=== PATIENT | male | born 1975 | race Caucasian/White ===

== ENCOUNTER 2022-12-19 14:09 | Inpatient (IN) | payer MEDICAID, SELFPAY ==
[2022-12-19 14:10] VITALS: BP 178/115; PULSE 84; TEMP 36.6; O2SAT 97; BMI 29.7
--- NOTE | 2022-12-19 14:16 | ED.C_ITS ---
HPI - Psych General: Chief Complaint: Psychiatric Symptoms Stated Complaint: 96 hour hold Time Seen by Provider: 12/19/22 14:10 Source: patient Mode of arrival: other ([facility] department) Limitations: no limitations History of Present Illness: Patient transported to the emergency department by [facility] with a court ordered 96-hour hold. She has deputies report that the patient's been cooperative and interactive during their transportation. Patient is unaware of why he is here. He states he lives alone and has not had any negative interactions with anyone. He denies any thoughts of harming himself or others. He denies auditory or visual his hallucinations. He states he occasionally smokes marijuana but does not drink alcohol use other street drugs. He has not had any recent hospitalizations for mental health and has not had a mental health related hospitalization for over 10 years. He states he used to be prescribed medication for depression by his family doctor but has not taken those for 4 months since his family doctor moved to a different location. Synopsis of the affidavit provided from Jasvir Webster who is a [place] [employer] sergeant and apparently also the patient's nephew read of the [place] [employer] states that there they are concerned because he is been exhibiting psychosis and displays paranoia with him apparently experiencing auditory hallucinations much of his behaviors resulted in numerous calls to his residence because of his behavior and they are concerned that he is a threat to himself. Associated symptoms: Reports depression; Deny auditory hallucinations, visual hallucinations, homicidal ideation or suicidal ideation Review of Systems Const: Denies: fever(s) or chills Eyes: Denies: change in vision ENMT: Denies: throat pain or nasal congestion Card: Denies: chest pain, palpitations or dyspnea on exertion Resp: Denies: dyspnea, productive cough or non-productive cough GI: Denies: abdominal pain, nausea, vomiting or diarrhea : Denies: difficulty urinating, dysuria or urinary frequency Musc: Denies: neck pain, back pain, extremity pain or extremity swelling Skin/Breast: Denies: rash Neuro: Denies: headache(s), numbness in extremities or weakness in extremities Psych: Reports: depression; Denies: visual hallucinations, auditory hallucinations, suicidal ideation or homicidal ideation Endo: Denies: polyuria or polydipsia PFSH ED PFSH: Social History Smoking and tobacco status: current every day smoker cigarettes Packs smoked per day: 0.5 Years cigarettes smoked: 15 Quit status (tobacco): considering quitting Second hand smoke exposure: No Physical Exam Narrative: EXAM NARRATIVE: Patient is calm cooperative makes good eye contact. Answers questions in a fluent goal-directed fashion. Const: COMMON NORMALS: no acute distress, average body habitus and alert GENERAL APPEARANCE: cooperative, comfortable and well kempt HENMT: COMMON NORMALS: normocephalic, Normal nasal mucous membranes and turbinates present, moist oral mucous membranes and oropharynx normal HEAD & SCALP: normocephalic FACE & SINUS: normal facial exam NOSE: Normal nasal mucous membranes and turbinates present Eye: COMMON NORMALS: Equal, round and reactive pupils present, EOMs intact bilaterally and conjunctivae normal CONJUNCTIVA: Yes conjunctivae normal PUPIL: Yes Equal, round and reactive pupils present Neck/C-Spine: COMMON NORMALS: full ROM and no lymphadenopathy Chest: COMMONS NORMALS: normal inspection of the chest Resp: COMMON NORMALS: normal respiratory effort, No retractions and clear to auscultation bilaterally EFFORT & INSPECTION: Yes able to speak in complete sentences AUSCULTATION: clear to auscultation bilaterally Cardio: COMMON NORMALS: regular rate, regular rhythm and Peripheral pulses 2+ throughout RATE: regular rate RHYTHM: regular rhythm PERIPHERAL PULSES: Peripheral pulses 2+ throughout GI: COMMON NORMALS: Normal to inspection, nondistended, normoactive bowel sounds present : COMMON NORMALS: Yes no CVA tenderness BLADDER/KIDNEY EXAM: Yes no CVA tenderness Back/Pelvis: COMMON NORMALS: no CVA tenderness, thoracic and lumbar spine normal to inspection and thoraco-lumbar ROM normal Extremity: COMMON NORMALS: normal to inspection, full ROM, no calf tenderness and no pedal edema Neuro: COMMON NORMALS: moves all extremities, no focal motor deficits and no sensory deficits noted SENSORIUM/ORIENTATION: Yes alert CRANIAL NERVES: Yes CN normal except as noted Psych: COMMON NORMALS: mental status grossly normal, Normal thought process present, normal affect, speech normal, activity/motor behavior normal, denies hallucinations, denies homicidal ideation and denies suicidal ideation APPEARANCE: Yes well kempt ATTITUDE: Yes calm SPEECH: Yes normal speech THOUGHT PROCESS: Normal thought process present THOUGHT CONTENT: Yes Normal thought content present Skin: COMMON NORMALS: no rashes or lesions noted, no wounds and turgor normal GENERAL SKIN EXAM: no rashes or lesions noted and turgor normal Course Consultations: Consultation #1: Discussed with Dr. Yin attending psychiatrist and he agreed to take the patient to the inpatient psychiatric unit for 96-hour evaluation Time: 15:00 Vital Signs: Vital signs: Vital Signs Temperature 97.8 F 12/19/22 14:10 Pulse Rate 82 12/19/22 15:08 Respiratory Rate 16 12/19/22 15:08 Blood Pressure 149/103 12/19/22 15:08 Pulse Oximetry 99 12/19/22 15:08 MDM - Psych Medical Decision Making Patient was transported to our [facility] emergency department by local [facility]'s department with an affidavit and a court ordered 96-hour hold. Apparently the affidavit contained information that there was concerned about patient's behavior to include auditory and visual hallucinations and concern about self harm. Patient apparently had a history of alcohol abuse in the past and was previously treated for depression but is currently not taking any medications. Patient's evaluation in the emergency department found him to be very cooperative made good eye contact speech was goal-directed and fluent and he specifically denied hallucinations of any kind. He denied any thoughts of self- harm or harm to others. He denied any recent mental health evaluations or h ospitalizations. Did admit to previous treatment for depression. He denied any drug or alcohol use currently. No other concerning clinical findings noted. Screening laboratories were unremarkable at the time of this dictation. Consult Tatian with the attending psychiatrist was completed who agreed to patient admission. Lab Data I reviewed the patient's lab results. 12/19/22 14:30 12/19/22 14:30 Laboratory Results WBC 6.14 10^3/uL (3.29-11.43) 12/19/22 14:30 RBC 4.83 10^6/uL (3.85-5.65) 12/19/22 14:30 Hgb 15.70 g/dL (11.27-16.99) 12/19/22 14:30 Hct 45.8 % (37-53) 12/19/22 14:30 MCV 94.8 fl (82-101) 12/19/22 14:30 MCH 32.5 pg (27-33) 12/19/22 14:30 MCHC 34.3 g/dL (30-55) 12/19/22 14:30 RDW 13.4 % (12.1-15.1) 12/19/22 14:30 Plt Count 211 10^3/cmm (157-399) 12/19/22 14:30 MPV 10.4 fL (7.4-10.4) 12/19/22 14:30 Neut % (Auto) 39.8 % 12/19/22 14:30 Lymph % (Auto) 44.6 % 12/19/22 14:30 [place] % (Auto) 11.2 % 12/19/22 14:30 Eos % (Auto) 2.8 % 12/19/22 14:30 Baso % (Auto) 1.1 % 12/19/22 14:30 Neut # (Auto) 2.44 10^3/uL (1.8-7.7) 12/19/22 14:30 Lymph # (Auto) 2.7 10^3/uL (0.8-4.8) 12/19/22 14:30 [place] # (Auto) 0.7 10^3/uL (0.2-0.9) 12/19/22 14:30 Eos # (Auto) 0.2 10^3/uL (0.0-0.8) 12/19/22 14:30 Baso # (Auto) 0.1 10^3/uL (0.0-0.1) 12/19/22 14:30 Nucleated RBC % (auto) 0 % 12/19/22 14:30 Nucleated RBCs # 0.0 /100WBC 12/19/22 14:30 Sodium 142 mmol/L (136-145) 12/19/22 14:30 Potassium 4.1 mmol/L (3.5-5.1) 12/19/22 14:30 Chloride 109 mmol/L (98-107) H 12/19/22 14:30 Carbon Dioxide 23 mmol/L (22-29) 12/19/22 14:30 Anion Gap 14.1 (5-19) 12/19/22 14:30 BUN 13 mg/dL (6-20) 12/19/22 14:30 Creatinine 0.9 mg/dL (0.7-1.2) 12/19/22 14:30 GFR Calculation 91.3 mL/min (90-130) 12/19/22 14:30 Glucose 88 mg/dL (65-115) 12/19/22 14:30 Calculated Osmolality 294 mOsm/kg (285-295) 12/19/22 14:30 Calcium 8.9 mg/dL (8.5-10.5) 12/19/22 14:30 Total Bilirubin 0.2 mg/dL (0.15-1.2) 12/19/22 14:30 AST 28 U/L (0-40) 12/19/22 14:30 ALT 39 U/L (0-41) 12/19/22 14:30 Alkaline Phosphatase 75 U/L (40-130) 12/19/22 14:30 Total Protein 6.7 g/dL (6.6-8.7) 12/19/22 14:30 Albumin 4.3 g/dL (3.5-5.2) 12/19/22 14:30 Globulin 2.4 g/dL (1.3-4.6) 12/19/22 14:30 Salicylates < 0.3 mg/dL (3-10) L 12/19/22 14:30 Acetaminophen < 5.0 ug/mL (10-30) L 12/19/22 14:30 Ethyl Alcohol < 10 mg/dL (0-10) 12/19/22 14:30 Discharge Plan Discharge Admit Provider: Maycol Yin Clinical Impression: Encounter for medical clearance for patient hold, Mental health disorder Condition: Stable Coding Level of Care Code ED Prosthetic Dentist for Renaldo Ulloa
[2022-12-19 14:39] LABS: Basophils # 0.1 10^3/uL (0.0-0.1); Basophils % 1.1 %; Eosinophils # 0.2 10^3/uL (0.0-0.8); Eosinophils % 2.8 %; Hematocrit 45.8 % (37-53); Lymphocytes # 2.7 10^3/uL (0.8-4.8); Lymphocytes % 44.6 %; Mean Corpuscular HGB Conc 34.3 g/dL (30-55); Mean Corpuscular Hemoglobin 32.5 pg (27-33); Mean Corpuscular Volume 94.8 fl (82-101); Mean Platelet Volume 10.4 fL (7.4-10.4); Monocytes # 0.7 10^3/uL (0.2-0.9); Monocytes % 11.2 %; Neutrophils # 2.44 10^3/uL (1.8-7.7); Neutrophils % 39.8 %; Nucleated Red Blood Cells % 0 %; Platelet Count 211 10^3/cmm (157-399); Red Blood Count 4.83 10^6/uL (3.85-5.65); Red Cell Distribution Width 13.4 % (12.1-15.1); White Blood Count 6.14 10^3/uL (3.29-11.43)
[2022-12-19 14:58] LABS: Alanine Aminotransferase 39 U/L (0-41); Albumin Level 4.3 g/dL (3.5-5.2); Alkaline Phosphatase 75 U/L (40-130); Anion Gap 14.1 (5-19); Aspartate Amino Transferase 28 U/L (0-40); Blood Urea Nitrogen 13 mg/dL (6-20); Calcium 8.9 mg/dL (8.5-10.5); Carbon Dioxide 23 mmol/L (22-29); Chloride 109 mmol/L (98-107); Globulin 2.4 g/dL (1.3-4.6); Glomerular Filtration Rate 91.3 mL/min (90-130); Glucose 88 mg/dL (65-115); Osmolality Calculated 294 mOsm/kg (285-295); Potassium 4.1 mmol/L (3.5-5.1); Sodium 142 mmol/L (136-145); Total Bilirubin 0.2 mg/dL (0.15-1.2); Total Protein 6.7 g/dL (6.6-8.7)
[2022-12-19 15:00] VITALS: BP 153/101; PULSE 76; RESP 16; TEMP 37.2; O2SAT 95
[2022-12-19 15:00] LABS: Acetaminophen < 5.0 ug/mL (10-30); Alcohol Level < 10 mg/dL (0-10); Salicylate < 0.3 mg/dL (3-10)
[2022-12-19 15:08] VITALS: BP 149/103; PULSE 82; RESP 16; O2SAT 99
--- NOTE | 2022-12-19 15:32 | PC.PHAR ---
pt states he hasnt taken any meds for 3-4 months-pt states does not take rx or otc meds- wrote for xanax 0.5mg tid and Lexapro 10mg daily on 08/16/22-
--- NOTE | 2022-12-19 16:20 | PC.NURSE ---
96 hr pt rights reviewed with patient and in presence of [facility] information systems security manager Raheem @[phone]. All questions answered. Patient only request was for a glass of water which was provided to him. Patient copy of 96 hr rights left at bedside with patient.
[2022-12-19 16:27] LABS: SARS Covid-2 Antigen Negative (Negative)
[2022-12-19 21:43] VITALS: BP 144/89; PULSE 90; RESP 18; TEMP 37; O2SAT 95
[2022-12-20 06:00] VITALS: BP 124/87; PULSE 74; RESP 17; O2SAT 98
--- NOTE | 2022-12-20 12:00 | P.NPUHP_ITS ---
Providers/Chief Complaint Admitting Physician: Maycol Yin MD Primary Care Provider: Emile Estevez DO Chief Complaint: 96 hour hold HPI NPU History of Present Illness Jose Hernandez is a 47 year old male who presented to the emergency department with the following report: Chief Complaint: Psychiatric Symptoms Stated Complaint: 96 hour hold Time Seen by Provider: 12/19/22 14:10 Source: patient Mode of arrival: other ([facility]) Limitations: no limitations History of Present Illness: Patient transported to the emergency department by [facility] with a court ordered 96-hour hold. She has deputies report that the patient's been cooperative and interactive during their transportation. Patient is unaware of why he is here. He states he lives alone and has not had any negative interactions with anyone. He denies any thoughts of harming himself or others. He denies auditory or visual his hallucinations. He states he occasionally smokes marijuana but does not drink alcohol use other street drugs. He has not had any recent hospitalizations for mental health and has not had a mental health related hospitalization for over 10 years. He states he used to be prescribed medication for depression by his family doctor but has not taken those for 4 months since his family doctor moved to a different location. Synopsis of the affidavit provided from Jasvir Webster who is a [place] [employer] sergeant and apparently also the patient's nephew read of the [place] [employer] states that there they are concerned because he is been exhibiting psychosis and displays paranoia with him apparently experiencing auditory hallucinations much of his behaviors resulted in numerous calls to his residence because of his behavior and they are concerned that he is a threat to himself. Associated symptoms: Reports depression; Deny auditory hallucinations, visual hallucinations, homicidal ideation or suicidal ideation The patient was admitted to the neuropsychiatric unit for definitive treatment of those issues. The patient presents today reporting that he was prescribed escitalopram and Xanax, by Dr. Estevez, at [facility] [address] but he has moved. Xanax ? gram, 1 to 3 a day. He not taken anything for several months. The patient reports that he has no idea why he is here, a deputy showed up at his house and brought him here. We discussed that it is odd that he has not tried to gain an understanding of why he was brought here, and why they thought he needed to put on a hold. The patient reports that he had a previous psychiatric hospitalization, he was here ten years ago. He reports that he has no idea why he was hospitalized, although he did not articulate for what other than to get on medication and get disability. Then he said it was for anxiety and depression, which we discussed had to be at a certain level to require hospitalization. He reports that he has been trying to get a job and has not been able to find one and is not doing well financially. He reports that he fought for disability a couple of years ago, reporting that behavioral health said he was disabled, but he did not get disability. He reports that he has been to [facility]. He reports that he has been on [address], Effexor, Wellbutrin, Abilify, Klonopin and Ativan, which he reports did not seem to help his anxiety level. He denies Depakote. The patient reports that he smokes about a half pack of ciga rettes a day. He reports occasional alcohol use, once a week to once every two weeks. He denies regular marijuana use. He denies any other illicit drug use. He denies current cocaine, methamphetamine, opiate use. He reports that he has been to drug rehabilitation a couple times and had three DWI?s, the last time about seven years ago. He denies any other drug related charges. He reports that anxie ty and depression started when he was younger and when he was about 20 to 22 years old, he went to the doctor for that. He endorses depressive feelings related to his weight, he endorses difficulty sleeping at times, at times lack of enjoyment. He denies passive wish or suicidal thoughts. He denies self- injurious behavior. He denies nightmares of flashbacks. He reports that his anxiety manifests as feeling scared, heart races, sweaty palms. He reports that he worries a lot, especially related to finances. He denies auditory or visual hallucinations, saying ?not as far as I know.? He again stated that he has no idea why he was brought to the hospital. We discussed that the report states concerns related to no taking medication, using alcohol as a replacement, and thoughts of people living in and under his residence. He reports that he has thought he heard things, and he has a large crawl space that they could be in. When asked about statements he made about these people plotting to steal his property or harm him, he stated that they hadn?t hurt him as far as he knows, he had not woken up with any scratches or anything. When asked about statements he made about these people talking in a foreign language he said he did not say that, but he used to have a roommate that spoke in a foreign language in her sleep. There are reports that police have come to his house multiple times recently leading to his arrest. He reports that he would call because there were people outside bothering him. And once the director of corporate communications got there, they would be gone, stating the people probably heard him call the director of corporate communications and would leave then. There are concerns about paranoia and paranoid behaviors. PSYCHIATRIC HISTORY: As above. SUBSTANCE ABUSE HISTORY: As above.? FAMILY HISTORY: The patient denies mental health issues on either side of the family. And he denies any addiction issues in his family, stating there were all Yarsanism. He denies any suicide attempts or completions. DEVELOPMENTAL HISTORY: The patient denies any issues with his mother?s or delivery of him. The patient reports learning to walk and talk and meeting developmental milestones on time. The patient denies speech therapy, learning support, emotional support, or special education classes. He reports he had some issues with reading in fourth grade, but it was then attributed to poor vision. PSYCHOSOCIAL HISTORY: The patient reports that his mother and father were together at his , and remained together. He reports that he has two older brothers, one of which when the patient was 18 years old. He denies his mother or father having any other children. He describes his childhood as pretty good, grew up in a Yarsanism household, parents were dependable. He denies neglect or emotional, physical, or sexual abuse. He denies CPS involvement. He reports that he graduated from high school. He denies additional training. He endorses being heterosexual, with the longest relationship being a year and a half. He has been once and once. He has a 25-year-old daughter, who he talks with periodically. He denies service. He reports identifying as Yarsanism. He reports that his longest job was two years at [employer]. He is currently unemployed. He reports that he currently lives in a house alone. LEGAL HISTORY: The patient reports that he has been in prison for fourteen days for DWI. He was in prison another time, for five days, twenty years ago. MEDICAL HISTORY: The patient endorses possible allergy to amoxicillin. No major medical issues reported.? Meds NPU Home Medications Medication Instructions Recorded Confirmed Last Taken Type No Known Home Medications 12/19/22 12/19/22 Unknown History Allergies Allergy/AdvReac Type Severity Reaction Status Date / Time amoxicillin AdvReac Intermediate Rash/Hives Verified 12/19/22 15:31 PFSH NPU PFSH: Social History Smoking and tobacco status: current every day smoker cigarettes Packs smoked per day: 0.5 Years cigarettes smoked: 15 Quit status (tobacco): considering quitting Second hand smoke exposure: No Mental Status Exam MSE Comments: This is an overweight versus obese, white male, in hospital scrubs, with limited grooming and eye contact. No abnormal movements, except for mild psychomotor ret ardation. Somewhat cooperative with exam in mild distress. He had a very peculiar smile on his face during the interview, for most of the interview. Speech was normal rate and volume. Mood described as was upset about being here; affect congruent. Thought process, organized. Thought content: patient denied any suicidal or homicidal ideation, there were no delusions reported, patient endorses paranoia, patient denied any auditory or visual hallucinations. Attention, concentration, and memory appeared intact, but none were formally tested. Alert and oriented times three. Insight and judgment are impaired. Impulse control is impaired. Vitals/I&O/Wt Last Vital Signs Temp 98.6 F 12/19/22 21:43 Pulse 74 12/20/22 06:00 Resp 17 12/20/22 06:00 BP 124/87 12/20/22 06:00 Pulse Ox 98 12/20/22 06:00 O2 Del Method Room Air 12/20/22 06:00 Weight last 48 hrs Weight 86.183 kg Data NPU 12/19/22 14:30 12/19/22 14:30 A&P Assessment and plan (1) Cannabis use disorder, severe, dependence: (2) Major depressive disorder, recurrent severe without psychotic features: (3) Alcohol use disorder, severe, dependence: (4) Psychosis: Plan This is a 47-year-old, white male, with a history of mental health issues, who presents on a 96-hour hold, with concerns of paranoia and paranoid behavior police reports of persecutory beliefs, reports and delusions. 1.? We will further evaluate and get some collateral information and consider possible appropriate medications. 2.? Encourage individual, group, and milieu therapy. 3.? Continue q-15-minute checks for safety. 4.? Recommend sober living treatment at the highest level of care to which the patient is willing to commit. Involuntary Hold Information 96 Hour Hold: 96 Hour Involuntary Admission: Yes 96 Hour Hold Ending Date: 12/25/22 96 Hour Hold Ending Time: 14:20 Attestations NPU Medical Necessity Statement*: Inpatient hospitalization is medically necessary and the clinically appropriate intervention, at this time. We will monitor medications and make changes as indicated. Patient will be in the hospital for over two midnights. Likely length of stay is three to five days. Coding Level of Care Code Acute Code for [facility] Fwd Diagnoses Cannabis use disorder, severe, dependence F12.20 Major depressive disorder, recurrent severe without psychotic features F33.2 Alcohol use disorder, severe, dependence F10.20 Psychosis F29
[2022-12-20 12:56] LABS: Amphetamines Screen Urine Negative (Negative); Barbiturates Screen Urine Negative (Negative); Benzodiazepines Screen Urine Negative (Negative); Cocaine Screen Urine Negative (Negative); Opiate Screen Urine Negative (Negative); PCP Screen Urine Negative (Negative); THC Screen Urine Negative (Negative)
[2022-12-20 14:00] VITALS: BP 124/83; PULSE 86; RESP 17; TEMP 36.9; O2SAT 95
[2022-12-20 20:45] VITALS: BP 136/86; PULSE 80; RESP 20; TEMP 36.6; O2SAT 95
[2022-12-21 06:00] VITALS: BP 123/46; PULSE 63; RESP 15; TEMP 36.6; O2SAT 97
[2022-12-21 14:00] VITALS: BP 132/86; PULSE 89; RESP 16; TEMP 36.7; O2SAT 96
--- NOTE | 2022-12-21 17:45 | P.NPUPN_ITS ---
Subjective NPU Subjective: Patient presents today denying any insight into our circumstances here and why the 96-hour hold might have been initiated. Patient has a history of diagnoses with psychosis at times. But he is in denial that there is ever been any difficulty distinguishing what is real. We discussed getting collateral information to see if they have a sense of the concerns. Continues to deny any need for medication or any intervention. Mental Status Exam MSE Comments: This is an overweight versus obese, white male, in hospital scrubs, with limited grooming and eye contact. No abnormal movements, except for mild psychomotor retardation. Somewhat cooperative with exam in mild distress. He had a very pe culiar smile on his face during the interview, for most of the interview. Speech was normal rate and volume. Mood described as was upset about being here; affect congruent. Thought process, organized. Thought content: patient denied any suicidal or homicidal ideation, there were no delusions reported, patient endorses paranoia, patient denied any auditory or visual hallucinations. Attention, concentration, and memory appeared intact, but none were formally tested. Alert and oriented times three. Insight and judgment are impaired. Impulse control is impaired. Vitals/I&O/Wt Last Vital Signs Temp 98.6 F 12/21/22 20:13 Pulse 87 12/21/22 20:13 Resp 20 H 12/21/22 20:13 BP 123/81 12/21/22 20:13 Pulse Ox 98 12/21/22 20:13 O2 Del Method Room Air 12/21/22 20:13 12/21/22 12/21/22 12/22/22 14:59 22:59 06:59 Intake Total 480 / 480 240 / 720 Balance 480 / 480 240 / 720 Data NPU 12/19/22 14:30 12/19/22 14:30 A&P Assessment and plan (1) Cannabis use disorder, severe, dependence: (2) Major depressive disorder, recurrent severe without psychotic features: (3) Alcohol use disorder, severe, dependence: (4) Psychosis: Plan This is a 47-year-old, white male, with a history of mental health issues, who presents on a 96-hour hold, with concerns of paranoia and paranoid behavior police reports of persecutory beliefs, reports and delusions. 1.? We will further evaluate and get some collateral information and consider possible appropriate medications. 2.? Encourage individual, group, and milieu therapy. 3.? Continue q-15-minute checks for safety. 4.? Recommend sober living treatment at the highest level of care to which the patient is willing to commit. 5. We will likely need a 21-day hold filed. Involuntary Hold Information 96 Hour Hold: 96 Hour Involuntary Admission: Yes 96 Hour Hold Ending Date: 12/25/22 96 Hour Hold Ending Time: 14:20 Attestations NPU Medical Necessity Statement*: Inpatient hospitalization is medically necessary and the clinically appropriate intervention, at this time. We will monitor medications and make changes as indicated. Likely length of stay is three to five days. Left is longer with likely filing of a 21-day hold. Coding Level of Care Code Acute Code for [facility] Fwd Diagnoses Cannabis use disorder, severe, dependence F12.20 Major depressive disorder, recurrent severe without psychotic features F33.2 Alcohol use disorder, severe, dependence F10.20 Psychosis F29
[2022-12-21 20:13] VITALS: BP 123/81; PULSE 87; RESP 20; TEMP 37; O2SAT 98
[2022-12-22 06:00] VITALS: BP 126/86; PULSE 96; RESP 18; TEMP 36.6; O2SAT 97
[2022-12-22 14:00] VITALS: BP 122/75; PULSE 106; RESP 16; TEMP 36.6; O2SAT 97
--- NOTE | 2022-12-22 17:02 | P.NPUPN_ITS ---
Subjective NPU Subjective: Patient presented today reporting that he is doing okay. He did acknowledge that he gave social work permission to speak with his family now as we try to get a better understanding of his mental illness and where it has been recently. He continues to downplay any paranoia or psychotic issues. But he finally has granted us permission to reach out to family to get a [place] sense of what is going on. Mental Status Exam MSE Comments: This is an overweight versus obese, white male, in hospital scrubs, with limited grooming and eye contact. No abnormal movements, except for mild psychomotor r etardation. More cooperative with exam in mild distress. He had a very peculiar smile on his face during the interview, for most of the interview. Speech was normal rate and volume. Mood described as was upset about being here; affect congruent. Thought process, organized. Thought content: patient denied any suicidal or homicidal ideation, there were no delusions reported, patient endorses paranoia, patient denied any auditory or visual hallucinations. Attention, concentration, and memory appeared intact, but none were formally tested. Alert and oriented times three. Insight and judgment are impaired. Impulse control is impaired. Vitals/I&O/Wt Last Vital Signs Temp 97.9 F 12/22/22 14:00 Pulse 106 H 12/22/22 14:00 Resp 16 12/22/22 14:00 BP 122/75 12/22/22 14:00 Pulse Ox 97 12/22/22 14:00 O2 Del Method Room Air 12/22/22 14:00 Data NPU 12/19/22 14:30 12/19/22 14:30 A&P Assessment and plan (1) Cannabis use disorder, severe, dependence: (2) Major depressive disorder, recurrent severe without psychotic features: (3) Alcohol use disorder, severe, dependence: (4) Psychosis: Plan This is a 47-year-old, white male, with a history of mental health issues, who presents on a 96-hour hold, with concerns of paranoia and paranoid behavior police reports of persecutory beliefs, reports and delusions. 1.? We will further evaluate and get some collateral information and cons ider possible appropriate medications. 2.? Encourage individual, group, and milieu therapy. 3.? Continue q-15-minute checks for safety. 4.? Recommend sober living treatment at the highest level of care to which the patient is willing to commit. 5. 21-day hold paperwork filed given his hold expires on Sunday. Patient did give permission for social work/treatment team to speak to his brother about his circumstances. He had previously refused our attempts to get collateral information from family forbidding us to speak to them. Involuntary Hold Information 96 Hour Hold: 96 Hour Involuntary Admission: Yes 96 Hour Hold Ending Date: 12/25/22 96 Hour Hold Ending Time: 14:20 Attestations NPU Medical Necessity Statement*: Inpatient hospitalization is medically necessary and the clinically appropriate intervention, at this time. We will monitor medications and make changes as indicated. Likely length of stay is three to five days. Left is longer with likely filing of a 21-day hold. Coding Level of Care Code Acute Code for [facility] Fwd Diagnoses Cannabis use disorder, severe, dependence F12.20 Major depressive disorder, recurrent severe without psychotic features F33.2 Alcohol use disorder, severe, dependence F10.20 Psychosis F29
[2022-12-22 20:12] VITALS: BP 137/85; PULSE 77; RESP 16; TEMP 36.7; O2SAT 96
[2022-12-23 06:00] VITALS: BP 115/77; PULSE 66; RESP 17; O2SAT 97
[2022-12-23 13:49] VITALS: BP 119/76; PULSE 81; RESP 16; TEMP 37.2; O2SAT 97
--- NOTE | 2022-12-23 18:31 | P.NPUPN_ITS ---
Subjective NPU Subjective: Patient presented today continuing to demonstrate either limited insight or intentional feigning of ignorance surrounding his paranoia/psychosis and therefore is reporting confusion surrounding the recommendation of medication. We endorsed that we would reach out to family and are awaiting response but explained to him that an extension was filed and that he would likely be served prior to Sunday. Mental Status Exam MSE Comments: This is an overweight versus obese, white male, in hospital scrubs, with limited grooming and eye contact. No abnormal movements, except for mild psychomotor ret ardation. More cooperative with exam in mild distress. He had a very peculiar smile on his face during the interview, for most of the interview. Speech was normal rate and volume. Mood described as was upset about being here; affect congruent. Thought process, organized. Thought content: patient denied any suicidal or homicidal ideation, there were no delusions reported, patient endorses paranoia, patient denied any auditory or visual hallucinations. Attention, concentration, and memory appeared intact, but none were formally tested. Alert and oriented times three. Insight and judgment are impaired. Impulse control is impaired. Vitals/I&O/Wt Last Vital Signs Temp 97.7 F 12/23/22 21:17 Pulse 98 12/23/22 21:17 Resp 18 12/23/22 21:17 BP 116/80 12/23/22 21:17 Pulse Ox 96 12/23/22 21:17 O2 Del Method Room Air 12/23/22 06:00 Data NPU 12/19/22 14:30 12/19/22 14:30 A&P Assessment and plan (1) Cannabis use disorder, severe, dependence: (2) Major depressive disorder, recurrent severe without psychotic features: (3) Alcohol use disorder, severe, dependence: (4) Psychosis: Plan This is a 47-year-old, white male, with a history of mental health issues, who presents on a 96-hour hold, with concerns of paranoia and paranoid behavior police reports of persecutory beliefs, reports and delusions. 1.? We will further evaluate and get some collateral information and consider possible appropriate medications. He continues to refuse medication. Specifically antipsychotics. 2.? Encourage individual, group, and milieu therapy. 3.? Continue q-15-minute checks for safety. 4.? Recommend sober living treatment at the highest level of care to which the patient is willing to commit. 5. 21-day hold paperwork filed 12/22/2022. Patient did give permission for social work/treatment team to speak to his brother about his circumstances. He had previously refused our attempts to get collateral information from family forbidding us to speak to them. Involuntary Hold Information 96 Hour Hold: 96 Hour Involuntary Admission: Yes 96 Hour Hold Ending Date: 12/25/22 96 Hour Hold Ending Time: 14:20 Attestations NPU Medical Necessity Statement*: Inpatient hospitalization is medically necessary and the clinically appropriate intervention, at this time. We will monitor medications and make changes as indicated. Likely length of stay is three to five days. That stay is longer with likely filing of a 21-day hold. Coding Level of Care Code Acute Code for g Fwd Diagnoses Cannabis use disorder, severe, dependence F12.20 Major depressive disorder, recurrent severe without psychotic features F33.2 Alcohol use disorder, severe, dependence F10.20 Psychosis F29
[2022-12-23 21:17] VITALS: BP 116/80; PULSE 98; RESP 18; TEMP 36.5; O2SAT 96
[2022-12-24 06:00] VITALS: BP 85/54; PULSE 72; RESP 17; TEMP 36.8; O2SAT 95
--- NOTE | 2022-12-24 08:45 | P.NPUPN_ITS ---
Subjective NPU Subjective: Patient presented today virtually unchanged. He continues to offer no insight into his situation and continues to not be open to medication to address clear episodes of paranoia. We discussed collaborating with his family and the likelihood of a 21-day hold hearing in the next few days. We discussed the goal of long-term functioning. We also discussed Dr. Hines returning for treatment decisions. Mental Status Exam MSE Comments: This is an overweight versus obese, white male, in hospital scrubs, with limited grooming and eye contact. No abnormal movements, except for mild psychomotor r etardation. More cooperative with exam in mild distress. He had a very peculiar smile on his face during the interview, for most of the interview. Speech was normal rate and volume. Mood described as was upset about being here; affect congruent. Thought process, organized. Thought content: patient denied any suicidal or homicidal ideation, there were no delusions reported, patient endorses paranoia, patient denied any auditory or visual hallucinations. Attention, concentration, and memory appeared intact, but none were formally tested. Alert and oriented times three. Insight and judgment are impaired. Impulse control is impaired. Vitals/I&O/Wt Last Vital Signs Temp 98.2 F 12/24/22 22:00 Pulse 83 12/24/22 22:00 Resp 18 12/24/22 22:00 BP 127/81 12/24/22 22:00 Pulse Ox 98 12/24/22 22:00 O2 Del Method Room Air 12/24/22 14:00 12/24/22 12/24/22 12/25/22 14:59 22:59 06:59 Intake Total 480 / 480 Balance 480 / 480 Weight last 48 hrs Weight 95.254 kg Data NPU 12/19/22 14:30 12/19/22 14:30 A&P Assessment and plan (1) Cannabis use disorder, severe, dependence: (2) Major depressive disorder, recurrent severe without psychotic features: (3) Alcohol use disorder, severe, dependence: (4) Psychosis: Plan This is a 47-year-old, white male, with a history of mental health issues, who presents on a 96-hour hold, with concerns of paranoia and paranoid behavior police reports of persecutory beliefs, reports and delusions. 1.? We will further evaluate and get some collateral information and consider possible appropriate medications. He continues to refuse medication. Specifically antipsychotics. 2.? Encourage individual, group, and milieu therapy. 3.? Continue q-15-minute checks for safety. 4.? Recommend sober living treatment at the highest level of care to which the patient is willing to commit. 5. 21-day hold paperwork filed 12/22/2022. Patient did give permission for social work/treatment team to speak to his brother about his circumstances. He had previously refused our attempts to get collateral information from family forbidding us to speak to them. Involuntary Hold Information 96 Hour Hold: 96 Hour Involuntary Admission: Yes 96 Hour Hold Ending Date: 12/25/22 96 Hour Hold Ending Time: 14:20 Attestations NPU Medical Necessity Statement*: Inpatient hospitalization is medically necessary and the clinically appropriate intervention, at this time. We will monitor medications and make changes as indicated. Likely length of stay is three to five days. That stay is longer with likely filing of a 21-day hold. Coding Level of Care Code Acute Code for g Fwd Diagnoses Cannabis use disorder, severe, dependence F12.20 Major depressive disorder, recurrent severe without psychotic features F33.2 Alcohol use disorder, severe, dependence F10.20 Psychosis F29
[2022-12-24 14:00] VITALS: BP 119/78; PULSE 75; RESP 16; O2SAT 96
[2022-12-24 22:00] VITALS: BP 127/81; PULSE 83; RESP 18; TEMP 36.8; O2SAT 98
[2022-12-25 06:00] VITALS: BP 100/59; PULSE 71; RESP 18; O2SAT 98
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
[2022-12-25 14:00] VITALS: BP 151/101; PULSE 86; RESP 17; TEMP 37.1; O2SAT 97
--- NOTE | 2022-12-25 16:36 | W.PM.NPUPNS ---
Subjective NPU Subjective: Patient is a 47-year-old male with a history of paranoia admitted involuntarily with the patient reporting that he continued to appear concerned about people bothering him in his home. He had reported that he had contacted the police multiple times due to hearing people outside of his home. He stated that everything was fine here. He had refused any medications at this time and stated that he did not wish to be on any medications. He had minimized a past experience with paranoia and stated that his problems in the past had been treated with medications including lithium and Effexor. He had admitted to significant consumption of alcohol in the past but reports sobriety recently for many years. He denied any depression although he had expressed frustration with being targeted by others. Mental Status Exam MSE Comments: This is an overweight versus obese, white male, in hospital scrubs, with limited grooming and eye contact. No abnormal involuntary motor movements, except for mild psychomotor retardation. He was cooperative with exam in mild distress. Speech was normal in rate and volume. Mood described as struggling being here. His affect was somewhat odd. His thought process was organized. Thought content: patient denied any suicidal or homicidal ideation. He minimized any auditory or visual hallucinations. He had endorsed having the belief that neighbors had somehow infiltrated his home. Patient endorses paranoia, patient denied any auditory or visual hallucinations. Attention, concentration, and memory appeared intact, but none were formally tested. Alert and oriented times three. Insight and judgment are impaired. Impulse control is impaired. Vitals/I&O/Wt Last Vital Signs Temp 98.2 F 12/24/22 22:00 Pulse 71 12/25/22 06:00 Resp 18 12/25/22 06:00 BP 100/59 12/25/22 06:00 Pulse Ox 98 12/25/22 06:00 O2 Del Method Room Air 12/24/22 14:00 Weight last 48 hrs Weight 95.254 kg Data NPU 12/19/22 14:30 12/19/22 14:30 A&P Assessment and plan (1) Cannabis use disorder, severe, dependence: (2) Major depressive disorder, recurrent severe without psychotic features: (3) Alcohol use disorder, severe, dependence: (4) Psychosis: Plan This is a 47-year-old, white male, with a history of mental health issues, who presents on a 96-hour hold, with concerns of paranoia and paranoid behavior police reports of persecutory beliefs, reports and delusions. 1.? We will further evaluate and get some collateral information and consider possible appropriate medications. He continues to refuse medication. Specifically antipsychotics. 2.? Encourage individual, group, and milieu therapy. 3.? Continue q-15-minute checks for safety. 4.? Recommend sober living treatment at the highest level of care to which the patient is willing to commit. 5. 21-day hold paperwork filed 12/22/2022. Patient did give permission for social work/treatment team to speak to his brother about his circumstances. He had previously refused our attempts to get collateral information from family forbidding us to speak to them. Involuntary Hold Information 96 Hour Hold: 96 Hour Involuntary Admission: Yes 96 Hour Hold Ending Date: 12/25/22 96 Hour Hold Ending Time: 14:20 Attestations NPU Medical Necessity Statement*: Inpatient hospitalization is medically necessary and the clinically appropriate intervention, at this time. Is likely length of stay is 7 to 10 days as he remains paranoid and is refusing medication. That stay is longer with likely filing of a 21-day hold. Coding Level of Care Code Acute Code for [facility] Fwd Diagnoses Cannabis use disorder, severe, dependence F12.20 Major depressive disorder, recurrent severe without psychotic features F33.2 Alcohol use disorder, severe, dependence F10.20 Psychosis F29
[2022-12-25 21:05] VITALS: BP 158/98; PULSE 99; RESP 18; O2SAT 97
[2022-12-26 06:00] VITALS: BP 119/74; PULSE 69; RESP 16; O2SAT 98
[2022-12-26] MEDS: paliperidone ER 3 mg Tablet PO (13:40)
[2022-12-26 14:00] VITALS: BP 111/68; PULSE 84; RESP 16; O2SAT 94
--- NOTE | 2022-12-26 17:29 | P.NPUPN_ITS ---
Subjective NPU Subjective: Patient is a 47-year-old male with a history of paranoia admitted involuntarily with the patient reporting that he continued to appear concerned about people bothering him in his home. He had again stated that he continued to believe that people were trying to mess with with him and had acknowledged that he felt that others were attempted to steal his house from underneath him. After spe[place]nie skel[place] with the family, they provided some additional evidence that suggested that he was living in his potential squalor with a decline in functioning for at least 5 years after the patient's parents had both . The patient had been under their care and once the patient had begun to live independently he appeared to show greater emergence of paranoia and psychotic symptoms. Mental Status Exam MSE Comments: This is an overweight versus obese, white male, in hospital scrubs, with limited grooming and eye contact. No abnormal involuntary motor movements, except for mild psychomotor retardation. He was cooperative with exam in mild distress. Speech was normal in rate and volume. Mood described as okay His affect was somewhat blunted. His thought process was organized. Thought content: patient denied any suicidal or homicidal ideation. He had endorsed hearing people. He had endorsed having the belief that neighbors had somehow infiltrated his home. Patient endorses paranoia, patient denied any auditory or visual hallucinations. Attention, concentration, and memory appeared intact, but none were formally tested. Alert and oriented times three. Insight and judgment are impaired. Impulse control is impaired. Vitals/I&O/Wt Last Vital Signs Temp 98.8 F 12/25/22 14:00 Pulse 84 12/26/22 14:00 Resp 16 12/26/22 14:00 BP 111/68 12/26/22 14:00 Pulse Ox 94 12/26/22 14:00 O2 Del Method Room Air 12/26/22 14:00 Data NPU 12/19/22 14:30 12/19/22 14:30 A&P Assessment and plan (1) Cannabis use disorder, severe, dependence: (2) Major depressive disorder, recurrent severe without psychotic features: (3) Alcohol use disorder, severe, dependence: (4) Psychosis: Plan This is a 47-year-old, white male, with a history of mental health issues, who presents on a 96-hour hold, with concerns of paranoia and paranoid behavior police reports of persecutory beliefs, reports and delusions. 1.? Patient now on a 21-day hold with plan to initiate oral Invega with potential plan for monthly Invega if tolerated. 2.? Encourage individual, group, and milieu therapy. 3.? Continue q-15-minute checks for safety. 4.? Recommend sober living treatment at the highest level of care to which the patient is willing to commit. Involuntary Hold Information 96 Hour Hold: 96 Hour Involuntary Admission: Yes 96 Hour Hold Ending Date: 12/25/22 96 Hour Hold Ending Time: 14:20 Attestations NPU Medical Necessity Statement*: Inpatient hospitalization is medically necessary and the clinically appropriate intervention, at this time. The patient's likely length of stay is 10 to 15 days as he is now been placed on a 21-day hold with likely forced medications. Coding Level of Care Code Acute Code for g Fwd Diagnoses Cannabis use disorder, severe, dependence F12.20 Major depressive disorder, recurrent severe without psychotic features F33.2 Alcohol use disorder, severe, dependence F10.20 Psychosis F29
[2022-12-26 22:00] VITALS: BP 152/97; PULSE 89; RESP 18; TEMP 36.8; O2SAT 98
[2022-12-27 06:00] VITALS: BP 96/57; PULSE 62; RESP 18; O2SAT 95
[2022-12-27] MEDS: paliperidone ER 3 mg Tablet PO (09:11)
[2022-12-27 14:00] VITALS: BP 116/78; PULSE 100; RESP 16; TEMP 36.6; O2SAT 95
--- NOTE | 2022-12-27 15:26 | P.NPUPN_ITS ---
Subjective NPU Subjective: Patient is a 47-year-old male with a schizophrenia admitted with increased pain and paranoia and delusional thinking with a decline in functioning reportedly at home. Patient continued to be at times distracted on the unit. He had been polite and cooperative. He took his oral Invega without any issues yesterday. He reported again that he did not need to be here in the hospital but would cooperate with the accounts payable processor's request. He had stated that he was okay with eventually leaving here and finding the small piece of property in a area where others would not bother him. The patient had endorsed adequate concentration. He reported no cravings for alcohol at this time. He had denied any depressed mood but did report at times feeling anxious. Mental Status Exam MSE Comments: This is an overweight versus obese, white male, in hospital scrubs, with limited grooming and eye contact. No abnormal involuntary motor movements, except for mild psychomotor retardation. He was cooperative with exam in no acute distress. Speech was normal in rate and volume. Mood described as good His af fect was blunted. His thought process was organized. Thought content: patient denied any suicidal or homicidal ideation. He had continued to endorse paranoia and continued ideas of reference. Patient denied any auditory or visual hallucinations. Attention, concentration, and memory appeared intact, but none were formally tested. Alert and oriented times three. Insight and judgment are impaired. Impulse control is poor. Vitals/I&O/Wt Last Vital Signs Temp 97.8 F 12/27/22 14:00 Pulse 100 12/27/22 14:00 Resp 16 12/27/22 14:00 BP 116/78 12/27/22 14:00 Pulse Ox 95 12/27/22 14:00 O2 Del Method Room Air 12/27/22 14:00 Data NPU 12/19/22 14:30 12/19/22 14:30 A&P Assessment and plan (1) Schizophrenia: (2) Cannabis use disorder, severe, dependence: (3) Alcohol use disorder, severe, dependence: (4) Psychosis: Plan This is a 47-year-old, white male, with a history of mental health issues, who presents on a 96-hour hold, with concerns of paranoia and paranoid behavior police reports of persecutory beliefs, reports and delusions. 1.?INVEGA increase to 6mg daily with switch to IM medication. 2.? Encourage individual, group, and milieu therapy. 3.? Continue q-15-minute checks for safety. 4.? Recommend sober living treatment at the highest level of care to which the patient is willing to commit. Involuntary Hold Information 96 Hour Hold: 96 Hour Involuntary Admission: Yes 96 Hour Hold Ending Date: 12/25/22 96 Hour Hold Ending Time: 14:20 Attestations NPU Medical Necessity Statement*: Inpatient hospitalization is medically necessary and the clinically appropriate intervention, at this time. The patient's likely length of stay is 10 to 15 days as he is now been placed on a 21-day hold with likely forced medications. Coding Level of Care Code Acute Code for [facility] Fwd Diagnoses Schizophrenia F20.9 Cannabis use disorder, severe, dependence F12.20 Alcohol use disorder, severe, dependence F10.20 Psychosis F29
[2022-12-27 20:04] VITALS: BP 126/82; PULSE 99; RESP 17; TEMP 36.8; O2SAT 95
[2022-12-28 06:00] VITALS: BP 96/61; PULSE 74; RESP 20; TEMP 36.8; O2SAT 98
[2022-12-28] MEDS: paliperidone ER 6 mg Tablet PO (08:30)
[2022-12-28] MEDS: hyDROXYzine 25 mg Capsule 50 MG PO (13:18)
[2022-12-28 14:00] VITALS: RESP 17
--- NOTE | 2022-12-28 14:29 | P.NPUPN_ITS ---
Subjective NPU Subjective: Patient is a 47-year-old male with a schizophrenia admitted with increased pain and paranoia and delusional thinking with a decline in functioning reportedly at home. Patient was compliant on the milieu. He reported no problems or side effects from his medication. He continued to engage with the idea that people were somehow trying to take his home from him and he remained highly suspicious about his neighbors and people who were in my house . He reported feeling less anxious. He had reported that he felt that the police may have targeted him because he had found a credit card and had reported to the authorities and he thinks that they may have felt that he was engaging in nefarious behavior. Patient had been able to attend groups but was limited in his interaction with others. He had reported feeling frustrated with having been here. He had denied any depression at this time. Mental Status Exam MSE Comments: This is an overweight versus obese, white male, in hospital scrubs, with limited grooming and eye contact. No abnormal involuntary motor movements, except for mild psychomotor retardation. He was pleasant and cooperative with exam in mild distress. Speech was normal in rate and volume. Mood described as good His affect was blunted and mood incongruent. His thought process was organized but appeared to become more perseverative regarding his obsessive thinking regarding his paranoid ideation. Thought content: patient denied any suicidal or homicidal ideation. He had continued to endorse paranoia and continued ideas of reference. Patient denied any auditory or visual hallucinations. Attention, concentration, and memory appeared intact, but none were formally tested. Alert and oriented times three. Insight and judgment are impaired. Impulse control is poor. Vitals/I&O/Wt Last Vital Signs Temp 98.2 F 12/28/22 06:00 Pulse 74 12/28/22 06:00 Resp 20 H 12/28/22 06:00 BP 96/61 12/28/22 06:00 Pulse Ox 98 12/28/22 06:00 O2 Del Method Room Air 12/28/22 06:00 Data NPU 12/19/22 14:30 12/19/22 14:30 A&P Assessment and plan (1) Schizophrenia: (2) Cannabis use disorder, severe, dependence: (3) Alcohol use disorder, severe, dependence: (4) Psychosis: Plan This is a 47-year-old, white male, with a history of mental health issues, who presents on a 96-hour hold, with concerns of paranoia and paranoid behavior police reports of persecutory beliefs, reports and delusions. 1. Continue Invega 6mg daily. Likely switch to IM Invega if oral medication is tolerated. 2.? Encourage individual, group, and milieu therapy. 3.? Continue q-15-minute checks for safety. 4.? Recommend sober living treatment at the highest level of care to which the patient is willing to commit. Involuntary Hold Information 96 Hour Hold: 96 Hour Involuntary Admission: Yes 96 Hour Hold Ending Date: 12/25/22 96 Hour Hold Ending Time: 14:20 Attestations NPU Medical Necessity Statement*: Inpatient hospitalization is medically necessary and the clinically appropriate intervention, at this time. The patient's likely length of stay is 10 to 15 days as he is now been placed on a 21-day hold with likely forced medications. Coding Level of Care Code Acute Code for [facility] Diagnoses Schizophrenia F20.9 Cannabis use disorder, severe, dependence F12.20 Alcohol use disorder, severe, dependence F10.20 Psychosis F29
[2022-12-28] MEDS: OLANZapine 5 mg ODT PO (16:40)
[2022-12-28 20:10] VITALS: BP 101/75; PULSE 68; RESP 18; TEMP 36.7; O2SAT 98
[2022-12-29] MEDS: paliperidone ER 6 mg Tablet PO (08:30)
[2022-12-29 14:00] VITALS: BP 92/60; PULSE 83; RESP 15; TEMP 36.6; O2SAT 97
--- NOTE | 2022-12-29 16:14 | P.NPUPN_ITS ---
Subjective NPU Subjective: Patient is a 47-year-old male with a schizophrenia admitted with increased pain and paranoia and delusional thinking with a decline in functioning reportedly at home. The patient had continued to appear cooperative on the milieu. He reported no side effects from his medication. He had stated that he simply wants to go home. He had continued to endorse significant level of paranoia and appeared to be questioning the merits of why the police were involved in his business. He had been unable to explain why others seem to take so much interest in him. He had reported no particular side effects from his medication. Mental Status Exam MSE Comments: This is an overweight versus obese, white male, in hospital scrubs, with limited grooming and eye contact. No abnormal involuntary motor movements, except for mild psychomotor retardation. He was pleasant and cooperative with exam in no a cute distress. Speech was normal in rate and volume. Mood described as all right His affect was blunted and mood incongruent. His thought process was organized and linear. Thought content: patient denied any suicidal or homicidal ideation. He had continued to endorse paranoia and continued ideas of reference. Patient denied any auditory or visual hallucinations. Attention, concentration, and memory appeared intact, but none were formally tested. Alert and oriented times three. Insight and judgment are impaired. Impulse control is poor. Vitals/I&O/Wt Last Vital Signs Temp 97.8 F 12/29/22 14:00 Pulse 83 12/29/22 14:00 Resp 15 12/29/22 14:00 BP 92/60 12/29/22 14:00 Pulse Ox 97 12/29/22 14:00 O2 Del Method Room Air 12/28/22 20:10 Data NPU 12/19/22 14:30 12/19/22 14:30 A&P Assessment and plan (1) Schizophrenia: (2) Cannabis use disorder, severe, dependence: (3) Alcohol use disorder, severe, dependence: (4) Psychosis: Plan This is a 47-year-old, white male, with a history of mental health issues, who presents on a 96-hour hold, with concerns of paranoia and paranoid behavior police reports of persecutory beliefs, reports and delusions. 1. Increase Invega to 9mg tommorow. Likely switch to IM Invega if oral medication is tolerated. 2.? Encourage individual, group, and milieu therapy. 3.? Continue q-15-minute checks for safety. 4.? Recommend sober living treatment at the highest level of care to which the patient is willing to commit. Involuntary Hold Information 96 Hour Hold: 96 Hour Involuntary Admission: Yes 96 Hour Hold Ending Date: 12/25/22 96 Hour Hold Ending Time: 14:20 Attestations NPU Medical Necessity Statement*: Inpatient hospitalization is medically necessary and the clinically appropriate intervention, at this time. The patient's likely length of stay is 10 to 15 days as he is now been placed on a 21-day hold with likely forced medications. Coding Level of Care Code Acute Code for [facility] Fwd Diagnoses Schizophrenia F20.9 Cannabis use disorder, severe, dependence F12.20 Alcohol use disorder, severe, dependence F10.20 Psychosis F29
[2022-12-29] MEDS: hyDROXYzine 25 mg Capsule 50 MG PO (18:10)
[2022-12-29 20:49] VITALS: BP 120/79; PULSE 83; RESP 20; O2SAT 95
--- NOTE | 2022-12-30 06:29 | PC.NURSE ---
pt resting resp 20
[2022-12-30] MEDS: paliperidone ER 6 mg Tablet PO (08:50)
[2022-12-30] MEDS: hyDROXYzine 25 mg Capsule 50 MG PO ×2 (11:25→19:32)
[2022-12-30 14:00] VITALS: BP 136/95; PULSE 112; RESP 18; TEMP 36.4; O2SAT 96
[2022-12-30] MEDS: OLANZapine 5 mg ODT PO (14:12)
--- NOTE | 2022-12-30 14:25 | P.NPUPN_ITS ---
Subjective NPU Subjective: Patient is a 47-year-old male with a schizophrenia admitted with increased pain and paranoia and delusional thinking with a decline in functioning reportedly at home. Patient expressed continued worries about his home situation as he had remained suspicious regarding his neighbors and others that were trying to invade his home. Patient reported that he would be willing to continue to take these medications. He had avoided contact with family members at this time. He had reported no side effects from his current medication. He reported good energy. He had reported adequate sleep. The patient had appeared somewhat isolative on the milieu although he was able to attend groups. Mental Status Exam MSE Comments: This is an overweight versus obese, white male, in hospital scrubs, with limited grooming and eye contact. No abnormal involuntary motor movements, except for mild psychomotor retardation. He was pleasant and cooperative with exam in no acute distress. Speech was normal in rate and volume. Mood described as good. His affect was blunted and mood incongruent. His thought process was organized and linear. Thought content: patient denied any suicidal or homicidal ideation. He had continued to endorse paranoia with some ideas of reference. Patient denied any auditory or visual hallucinations. Attention, concentration, and memory appeared intact, but none were formally tested. Alert and oriented times three. Insight and judgment are impaired. Impulse control is poor. Vitals/I&O/Wt Last Vital Signs Temp 97.6 F 12/30/22 14:00 Pulse 112 H 12/30/22 14:00 Resp 18 12/30/22 14:00 BP 136/95 12/30/22 14:00 Pulse Ox 96 12/30/22 14:00 O2 Del Method Room Air 12/29/22 20:49 Data NPU 12/19/22 14:30 12/19/22 14:30 A&P Assessment and plan (1) Schizophrenia: (2) Cannabis use disorder, severe, dependence: (3) Alcohol use disorder, severe, dependence: (4) Psychosis: Plan This is a 47-year-old, white male, with a history of mental health issues, who presents on a 96-hour hold, with concerns of paranoia and paranoid behavior police reports of persecutory beliefs, reports and delusions. 1. Begin Invega IM 234 mg on Sunday and continue INvega 6mg daily 2.? Encourage individual, group, and milieu therapy. 3.? Continue q-15-minute checks for safety. 4.? Recommend sober living treatment at the highest level of care to which the patient is willing to commit. Involuntary Hold Information 96 Hour Hold: 96 Hour Involuntary Admission: Yes 96 Hour Hold Ending Date: 12/25/22 96 Hour Hold Ending Time: 14:20 Attestations NPU Medical Necessity Statement*: Inpatient hospitalization is medically necessary and the clinically appropriate intervention, at this time. The patient's likely length of stay is 10 to 15 days as he is now been placed on a 21-day hold with likely forced medications. Coding Level of Care Code Acute Code for [facility] Fwd Diagnoses Schizophrenia F20.9 Cannabis use disorder, severe, dependence F12.20 Alcohol use disorder, severe, dependence F10.20 Psychosis F29
[2022-12-30] MEDS: haloperidol 5 mg Tablet PO (15:14)
[2022-12-30 21:29] VITALS: BP 103/79; PULSE 114; RESP 18; TEMP 36.6; O2SAT 98
[2022-12-31 06:00] VITALS: BP 126/86; PULSE 86; RESP 16; O2SAT 99; BMI 34.2
[2022-12-31] MEDS: paliperidone ER 6 mg Tablet PO (09:07)
[2022-12-31] MEDS: hyDROXYzine 25 mg Capsule 50 MG PO (10:49)
[2022-12-31 12:42] VITALS: BP 107/72; PULSE 120; RESP 22; TEMP 36.7; O2SAT 97
--- NOTE | 2022-12-31 13:23 | W.PM.NPUPNS ---
Subjective NPU Subjective: Patient is a 47-year-old male with a schizophrenia admitted with increased pain and paranoia and delusional thinking with a decline in functioning reportedly at home. Patient had been somewhat guarded and less engaged with his peers. He had to continue to report worries and concerns that appeared to be questioning the intentions of others at home. He had reported feeling comfortable here on the unit. He reported no side effects from his current medication regimen. He had reported preferring to isolate himself on the unit. He had been reporting adequate sleep. He had not endorsed any current anxiety and did not require any as needed medications. Mental Status Exam MSE Comments: This is an overweight versus obese, white male, in hospital scrubs, with fair grooming and good eye contact. He was pacing the hallway while speaking with me. There was no evidence of any abnormal involuntary motor movements tics or tremors. There was mild psychomotor retardation appreciated. He was pleasant and cooperative with exam in no acute distress. Speech was normal in rate and volume. Mood described as okay. His affect was blunted and mood incongruent. His thought process was organized and linear. Thought content: patient denied any suicidal or homicidal ideation. He had continued to endorse paranoia with evidence of delusional thinking. Patient denied any auditory or visual hallucinations. Attention, concentration, and memory appeared intact, but none were formally tested. Alert and oriented times three. Insight and judgment are impaired. Impulse control is poor. Vitals/I&O/Wt Last Vital Signs Temp 98.0 F 12/31/22 12:42 Pulse 120 H 12/31/22 12:42 Resp 22 H 12/31/22 12:42 BP 107/72 12/31/22 12:42 Pulse Ox 97 12/31/22 12:42 O2 Del Method Room Air 12/31/22 12:42 12/30/22 12/31/22 12/31/22 22:59 06:59 14:59 Intake Total 0 / 0 Balance 0 / 0 Weight last 48 hrs Weight 98.997 kg Data NPU 12/19/22 14:30 12/19/22 14:30 A&P Assessment and plan (1) Schizophrenia: (2) Cannabis use disorder, severe, dependence: (3) Alcohol use disorder, severe, dependence: (4) Psychosis: Plan This is a 47-year-old, white male, with a history of mental health issues, who presents on a 96-hour hold, with concerns of paranoia and paranoid behavior police reports of persecutory beliefs, reports and delusions. 1. Begin Invega IM 234 mg on Sunday and continue INvega 6mg daily 2.? Encourage individual, group, and milieu therapy. 3.? Continue q-15-minute checks for safety. 4.? Recommend sober living treatment at the highest level of care to which the patient is willing to commit. Involuntary Hold Information 96 Hour Hold: 96 Hour Involuntary Admission: Yes 96 Hour Hold Ending Date: 12/25/22 96 Hour Hold Ending Time: 14:20 Attestations NPU Medical Necessity Statement*: Inpatient hospitalization is medically necessary and the clinically appropriate intervention, at this time. The patient's likely length of stay is 10 to 15 days as he is now been placed on a 21-day hold with likely forced medications. Coding Level of Care Code Acute Code for [facility] Diagnoses Schizophrenia F20.9 Cannabis use disorder, severe, dependence F12.20 Alcohol use disorder, severe, dependence F10.20 Psychosis F29
[2022-12-31] MEDS: OLANZapine 5 mg ODT PO (14:59)
[2022-12-31] MEDS: haloperidol 5 mg Tablet PO (16:56)
[2022-12-31 20:03] VITALS: BP 134/91; PULSE 108; RESP 20; O2SAT 97
[2023-01-01 06:00] VITALS: BP 118/84; PULSE 78; RESP 16; O2SAT 97
[2023-01-01] MEDS: paliperidone ER 6 mg Tablet PO (08:43)
[2023-01-01] MEDS: hyDROXYzine 25 mg Capsule 50 MG PO ×2 (09:46→16:20)
--- NOTE | 2023-01-01 09:47 | PC.NURSE ---
PRN VISTARIL 50 MG GIVEN PO PER PT C/O STATED ANXIETY, BUT HE SEEMS TO BE IN A PLEASANT MOOD, SMILING WITH STAFF IN CONVERSATION
[2023-01-01] MEDS: paliperidone palmitate 234 mg Syringe IM (11:09)
--- NOTE | 2023-01-01 11:13 | PC.NURSE ---
pt received invega 234/ml im into the L deltoid today 01/01/23.
[2023-01-01 13:19] VITALS: BP 94/56; PULSE 88; RESP 16; TEMP 36.8; O2SAT 96
--- NOTE | 2023-01-01 14:06 | P.NPUPN_ITS ---
Subjective NPU Subjective: Patient is a 47-year-old male with a schizophrenia admitted with increased pain and paranoia and delusional thinking with a decline in functioning reportedly at home. The patient had reported no side effects from his medication. He had continued to endorse worries about someone being inside of his home that was trying to take away his home. He had reported worries that people once for some reason in invade his home and take all of his belongings. He reported no side effects from the Invega at this time. He was agreeable to considering follow-up with [facility] but rather avoid having a family member see him there. Patient denied having any thoughts of hurting himself or others. He had been able to attend groups and had some contribution to groups although he had appeared mostly to h imself on the unit. Mental Status Exam MSE Comments: This is an overweight versus obese, white male, in hospital scrubs, with fair grooming and good eye contact. He was pacing the hallway slowly while speaking with me. There was no evidence of any abnormal involuntary motor movements tics or tremors. There was mild psychomotor retardation appreciated. He was pleasant and cooperative with exam in no acute distress. Speech was normal in rate and volume. Mood described as all right. His affect was blunted and mood incongruent. His thought process was organized and linear. Thought content: p atient denied any suicidal or homicidal ideation. He had continued to endorse paranoia with evidence of delusional thinking. Patient denied any auditory or visual hallucinations. Attention, concentration, and memory appeared intact, but none were formally tested. Alert and oriented times three. Insight was poor and judgment is poor. Impulse control is poor. Vitals/I&O/Wt Last Vital Signs Temp 98.2 F 01/01/23 13:19 Pulse 88 01/01/23 13:19 Resp 16 01/01/23 13:19 BP 94/56 01/01/23 13:19 Pulse Ox 96 01/01/23 13:19 O2 Del Method Room Air 01/01/23 06:00 Weight last 48 hrs Weight 98.997 kg Data NPU 12/19/22 14:30 12/19/22 14:30 A&P Assessment and plan (1) Schizophrenia: (2) Cannabis use disorder, severe, dependence: (3) Alcohol use disorder, severe, dependence: (4) Psychosis: Plan This is a 47-year-old, white male, with a history of mental health issues, who presents on a 96-hour hold, with concerns of paranoia and paranoid behavior police reports of persecutory beliefs, reports and delusions. 1. Invega 234mg IM given today (01/01/23) while continuing invega oral at this time. 2.? Encourage individual, group, and milieu therapy. 3.? Continue q-15-minute checks for safety. 4.? Recommend sober living treatment at the highest level of care to which the patient is willing to commit. Involuntary Hold Information 96 Hour Hold: 96 Hour Involuntary Admission: Yes 96 Hour Hold Ending Date: 12/25/22 96 Hour Hold Ending Time: 14:20 Attestations NPU Medical Necessity Statement*: Inpatient hospitalization is medically necessary and the clinically appropriate intervention, at this time. The patient's likely length of stay is 10 to 15 days as he is now been placed on a 21-day hold with likely forced medications. Coding Level of Care Code Acute Code for [facility] Fwd Diagnoses Schizophrenia F20.9 Cannabis use disorder, severe, dependence F12.20 Alcohol use disorder, severe, dependence F10.20 Psychosis F29
[2023-01-01] MEDS: OLANZapine 5 mg ODT PO (14:28)
[2023-01-01] MEDS: trazodone 50 mg Tablet PO (20:33)
[2023-01-01 21:07] VITALS: BP 139/94; PULSE 118; RESP 20; O2SAT 98
[2023-01-02 06:00] VITALS: BP 105/61; PULSE 72; RESP 17; O2SAT 97
[2023-01-02] MEDS: paliperidone ER 6 mg Tablet PO (08:17)
--- NOTE | 2023-01-02 08:53 | PC.NURSE ---
During morning assessment, patient reports feeling well. Patient was excited about having family visit yesterday. Patient states that he is ready to leave.
[2023-01-02] MEDS: hyDROXYzine 25 mg Capsule 50 MG PO ×2 (12:54→20:01)
[2023-01-02 14:00] VITALS: BP 118/79; PULSE 92; RESP 16; TEMP 36.6; O2SAT 95
--- NOTE | 2023-01-02 15:19 | W.PM.NPUPNS ---
Subjective NPU Subjective: Patient is a 47-year-old male with a schizophrenia admitted with increased pain and paranoia and delusional thinking with a decline in functioning reportedly at home. The patient had reported no side effects from his medication. He had reported that his daughter had arrived at his home and stated that he felt comfortable about her being there. He had reported desire to work when he left here. He was reporting no side effects from his medication. He had been compliant and polite on the milieu. He did not elaborate regarding his current issues. He had continued to describe having some concerns about people infringing on his rights and having targeted him at his home. Mental Status Exam MSE Comments: This is an overweight versus obese, white male, in hospital scrubs, with fair grooming and good eye contact. He was pacing the hallway slowly while speaking with me. There was no evidence of any abnormal involuntary motor movements tics or tremors. There was mild psychomotor retardation appreciated. He was pleasant and cooperative with exam in no acute distress. Speech was normal in rate and volume. Mood described as okay. His affect was blunted and mood incongruent. His thought process was organized and linear. Thought content: patient denied any suicidal or homicidal ideation. He had continued to endorse paranoia with less overt delusions noted. Patient denied any auditory or visual hallucinations. Attention, concentration, and memory appeared intact, but none were formally tested. Alert and oriented times three. Insight was poor and judgment is poor. Impulse control is poor. Vitals/I&O/Wt Last Vital Signs Temp 97.9 F 01/02/23 14:00 Pulse 92 01/02/23 14:00 Resp 16 01/02/23 14:00 BP 118/79 01/02/23 14:00 Pulse Ox 95 01/02/23 14:00 O2 Del Method Room Air 01/02/23 14:00 Data NPU 12/19/22 14:30 12/19/22 14:30 A&P Assessment and plan (1) Schizophrenia: (2) Cannabis use disorder, severe, dependence: (3) Alcohol use disorder, severe, dependence: (4) Psychosis: Plan This is a 47-year-old, white male, with a history of mental health issues, who presents on a 96-hour hold, with concerns of paranoia and paranoid behavior police reports of persecutory beliefs, reports and delusions. 1. Invega 234mg IM given today (01/01/23) while continuing invega oral 6mg at this time. 2.? Encourage individual, group, and milieu therapy. 3.? Continue q-15-minute checks for safety. 4.? Recommend sober living treatment at the highest level of care to which the patient is willing to commit. Involuntary Hold Information 96 Hour Hold: 96 Hour Involuntary Admission: Yes 96 Hour Hold Ending Date: 12/25/22 96 Hour Hold Ending Time: 14:20 Attestations NPU Medical Necessity Statement*: Inpatient hospitalization is medically necessary and the clinically appropriate intervention, at this time. The patient's likely length of stay is 5-7 days as he is now been placed on a 21-day hold with likely forced medications. Coding Level of Care Code Acute Code for [facility] Diagnoses Schizophrenia F20.9 Cannabis use disorder, severe, dependence F12.20 Alcohol use disorder, severe, dependence F10.20 Psychosis F29
[2023-01-02] MEDS: OLANZapine 5 mg ODT PO (15:21)
--- NOTE | 2023-01-02 15:21 | PC.NURSE ---
Patient at window requesting something for anxiety. Patient anxious about another patient. Patient rates anxiety 5/10. Administered Zyprexa 5mg ODT to patient. Encouraged patient to go to his room and read his book.
[2023-01-02 20:01] VITALS: BP 132/85; PULSE 102; RESP 18; O2SAT 97
[2023-01-02] MEDS: trazodone 50 mg Tablet PO (20:01)
[2023-01-03 06:00] VITALS: BP 107/73; PULSE 78; RESP 18; O2SAT 97
[2023-01-03] MEDS: paliperidone ER 6 mg Tablet PO (08:44)
[2023-01-03] MEDS: hyDROXYzine 25 mg Capsule 50 MG PO ×2 (09:41→16:33)
[2023-01-03] MEDS: OLANZapine 5 mg ODT PO (11:11)
[2023-01-03 14:00] VITALS: BP 112/73; PULSE 110; RESP 17; TEMP 36.4; O2SAT 96
--- NOTE | 2023-01-03 15:49 | P.NPUPN_ITS ---
Subjective NPU Subjective: Patient is a 47-year-old male with a schizophrenia admitted with increased pain and paranoia and delusional thinking with a decline in functioning reportedly at home. Patient was compliant on the milieu. There was no side effects reported from his medication. He reported improved energy. He was more social and more engaging in groups. Patient had reported having some concerns about his home but appeared to be less preoccupied by others somehow trying to invade his privacy at home. Mental Status Exam MSE Comments: This is an overweight versus obese, white male, in hospital scrubs, with fair grooming and good eye contact. He was calm and pleasant on the milieu. There was no evidence of any abnormal involuntary motor movements tics or tremors. There was mild psychomotor retardation appreciated. He was pleasant and cooperative with exam in no acute distress. Speech was normal in rate and volume. Mood described as good.. His affect was brighter today. His thought process was organized and linear. Thought content: patient denied any suicidal or homicidal ideation. He had continued to endorse paranoia with less overt delusions noted. Patient denied any auditory or visual hallucinations. Attention, concentration, and memory appeared intact, but none were formally te sted. Alert and oriented times three. Insight was improving. His judgment is poor. Impulse control is poor. Vitals/I&O/Wt Last Vital Signs Temp 97.5 F L 01/03/23 14:00 Pulse 110 H 01/03/23 14:00 Resp 17 01/03/23 14:00 BP 112/73 01/03/23 14:00 Pulse Ox 96 01/03/23 14:00 O2 Del Method Room Air 01/02/23 14:00 Data NPU 12/19/22 14:30 12/19/22 14:30 A&P Assessment and plan (1) Schizophrenia: (2) Cannabis use disorder, severe, dependence: (3) Alcohol use disorder, severe, dependence: (4) Psychosis: Plan This is a 47-year-old, white male, with a history of mental health issues, who presents on a 96-hour hold, with concerns of paranoia and paranoid behavior police reports of persecutory beliefs, reports and delusions. 1. Invega 234mg IM given today (01/01/23) while continuing invega oral 6mg at this time. Invega 156mg on 01/06/23 2.? Encourage individual, group, and milieu therapy. 3.? Continue q-15-minute checks for safety. 4.? Recommend sober living treatment at the highest level of care to which the patient is willing to commit. Involuntary Hold Information 96 Hour Hold: 96 Hour Involuntary Admission: Yes 96 Hour Hold Ending Date: 12/25/22 96 Hour Hold Ending Time: 14:20 Attestations NPU Medical Necessity Statement*: Inpatient hospitalization is medically necessary and the clinically appropriate intervention, at this time. The patient's likely length of stay is 7-9 days as he is now been placed on a 21-day hold with likely forced medications. Coding Level of Care Code Acute Code for [facility] Fwd Diagnoses Schizophrenia F20.9 Cannabis use disorder, severe, dependence F12.20 Alcohol use disorder, severe, dependence F10.20 Psychosis F29
[2023-01-03 20:57] VITALS: BP 134/75; PULSE 62; RESP 16; TEMP 36.4; O2SAT 97
[2023-01-03 21:00] VITALS: BP 132/86; PULSE 104; RESP 18; TEMP 36.7; O2SAT 98
[2023-01-03] MEDS: trazodone 50 mg Tablet PO (21:44)
[2023-01-04 06:00] VITALS: BP 111/73; PULSE 78; RESP 18; O2SAT 96
[2023-01-04] MEDS: paliperidone ER 6 mg Tablet PO (07:53)
--- NOTE | 2023-01-04 12:15 | W.PM.NPUPNS ---
Subjective NPU Subjective: Patient presented today reporting that he was doing okay. He continues to demonstrate limited insight into the reason for his hospitalization though he does report feeling better and looks less guarded, anxious and no longer appeared to have the inappropriate grin. He continues to wander if maybe his family played a role in him being here and downplayed any issues with his upkeep of his domicile. We discussed a plan to give him his second loading dose of Invega on Sunday which is just a couple days early in hopes that it might allow him to discharge somewhat sooner. He endorsed a plan to follow-up with the different treatments in the community. Mental Status Exam MSE Comments: This is an overweight versus obese, white male, in hospital scrubs, with fair grooming and good eye contact. He was calm and pleasant on the milieu. There was no evidence of any abnormal involuntary motor movements tics or tremors. There was mild psychomotor retardation appreciated. He was pleasant and cooperative with exam in no acute distress. Speech was normal in rate and volume. Mood described as good.. His affect was brighter today. His thought process was organized and linear. Thought content: patient denied any suicidal or homicidal ideation. He had continued to endorse paranoia with less overt delusions noted. Patient denied any auditory or visual hallucinations. Attention, concentration, and memory appeared intact, but none were formally tested. Alert and oriented times three. Insight was improving. His judgment is poor. Impulse control is poor. Vitals/I&O/Wt Last Vital Signs Temp 98.0 F 01/03/23 21:00 Pulse 78 01/04/23 06:00 Resp 18 01/04/23 06:00 BP 111/73 01/04/23 06:00 Pulse Ox 96 01/04/23 06:00 O2 Del Method Room Air 01/02/23 14:00 Data NPU 12/19/22 14:30 12/19/22 14:30 A&P Assessment and plan (1) Schizophrenia: (2) Cannabis use disorder, severe, dependence: (3) Alcohol use disorder, severe, dependence: (4) Psychosis: Plan This is a 47-year-old, white male, with a history of mental health issues, who presents on a 96-hour hold, with concerns of paranoia and paranoid behavior police reports of persecutory beliefs, reports and delusions. 1. Invega 234mg IM given today (01/01/23) while continuing invega oral 6mg at this time. Invega 156mg on 01/06/23 2.? Encourage individual, group, and milieu therapy. 3.? Continue q-15-minute checks for safety. 4.? Recommend sober living treatment at the highest level of care to which the patient is willing to commit. Involuntary Hold Information 96 Hour Hold: 96 Hour Involuntary Admission: Yes 96 Hour Hold Ending Date: 12/25/22 96 Hour Hold Ending Time: 14:20 Attestations NPU Medical Necessity Statement*: Inpatient hospitalization is medically necessary and the clinically appropriate intervention, at this time. The patient's likely length of stay is 6-8 days as he is now been placed on a 21-day hold with likely forced medications. Coding Level of Care Code Acute Code for g Fwd Diagnoses Schizophrenia F20.9 Cannabis use disorder, severe, dependence F12.20 Alcohol use disorder, severe, dependence F10.20 Psychosis F29
[2023-01-04 14:00] VITALS: BP 145/88; PULSE 95; RESP 17; TEMP 37.2; O2SAT 96
[2023-01-04] MEDS: hyDROXYzine 25 mg Capsule 50 MG PO (16:40)
[2023-01-04] MEDS: OLANZapine 5 mg ODT PO (18:18)
[2023-01-04 20:26] VITALS: BP 124/77; PULSE 109; RESP 18; TEMP 36.7; O2SAT 95
[2023-01-04] MEDS: trazodone 50 mg Tablet PO (20:34)
--- NOTE | 2023-01-05 06:41 | PC.NURSE ---
pt resting resp 20
[2023-01-05] MEDS: paliperidone ER 6 mg Tablet PO (08:32)
[2023-01-05] MEDS: calcium carbonate 500 mg Chew Tablet 1000 MG PO (10:20)
--- NOTE | 2023-01-05 12:05 | W.PM.NPUPNS ---
Subjective NPU Subjective: Patient presented today reporting that he is doing okay. He reports that he is not thinking about the people that were around his house. He theorizes that they are probably not on his mind or around his house because they got in trouble for other stuff they were doing. We discussed that we were going to give him his second Invega injection 156 mg IM to the deltoid as a loading dose tomorrow which could give us some flexibility in discharge if he were doing well enough to do so. He was agreeable to that plan. Mental Status Exam MSE Comments: This is an overweight versus obese, white male, in hospital scrubs, with fair grooming and good eye contact. He was calm and pleasant on the milieu. There was no evidence of any abnormal involuntary motor movements tics or tremors. There was mild psychomotor retardation appreciated. He was pleasant and cooperative with exam in no acute distress. Speech was normal in rate and volume. Mood described as good. His affect was brighter today. His thought process was organized and linear. Thought content: patient denied any suicidal or homicidal ideation. He had continued to endorse paranoia with less overt delusions noted. Patient denied any auditory or visual hallucinations. Attention, concentration, and memory appeared intact, but none were formally tested. Alert and oriented times three. Insight was improving. His judgment is poor. Impulse control is poor. Vitals/I&O/Wt Last Vital Signs Temp 98.0 F 01/04/23 20:26 Pulse 109 H 01/04/23 20:26 Resp 18 01/04/23 20:26 BP 124/77 01/04/23 20:26 Pulse Ox 95 01/04/23 20:26 O2 Del Method Room Air 01/04/23 14:00 Data NPU 12/19/22 14:30 12/19/22 14:30 A&P Assessment and plan (1) Schizophrenia: (2) Cannabis use disorder, severe, dependence: (3) Alcohol use disorder, severe, dependence: (4) Psychosis: Plan This is a 47-year-old, white male, with a history of mental health issues, who presents on a 96-hour hold, with concerns of paranoia and paranoid behavior police reports of persecutory beliefs, reports and delusions. 1. Invega 234mg IM given today (01/01/23) while continuing invega oral 6mg at this time. Invega 156mg on 01/06/23 2.? Encourage individual, group, and milieu therapy. 3.? Continue q-15-minute checks for safety. 4.? Recommend sober living treatment at the highest level of care to which the patient is willing to commit. Involuntary Hold Information 96 Hour Hold: 96 Hour Involuntary Admission: Yes 96 Hour Hold Ending Date: 12/25/22 96 Hour Hold Ending Time: 14:20 Attestations NPU Medical Necessity Statement*: Inpatient hospitalization is medically necessary and the clinically appropriate intervention, at this time. The patient's likely length of stay is 5-7 days as he is now been placed on a 21-day hold with likely forced medications. Coding Level of Care Code Acute Code for [facility] Fwd Diagnoses Schizophrenia F20.9 Cannabis use disorder, severe, dependence F12.20 Alcohol use disorder, severe, dependence F10.20 Psychosis F29
[2023-01-05 14:00] VITALS: BP 114/69; PULSE 94; RESP 18; TEMP 36.8; O2SAT 97
[2023-01-05] MEDS: hyDROXYzine 25 mg Capsule 50 MG PO (16:07)
[2023-01-05] MEDS: OLANZapine 5 mg ODT PO (17:08)
[2023-01-05] MEDS: trazodone 50 mg Tablet PO ×2 (19:25→21:43)
[2023-01-05 19:33] VITALS: BP 118/82; PULSE 62; RESP 18; TEMP 36.9; O2SAT 97
[2023-01-06 06:00] VITALS: RESP 16
--- NOTE | 2023-01-06 06:33 | PC.NURSE ---
pt resting vs not taken resp 16
[2023-01-06] MEDS: paliperidone ER 6 mg Tablet PO (08:30)
[2023-01-06] MEDS: paliperidone palmitate 156 mg Syringe IM (08:53)
[2023-01-06] MEDS: hyDROXYzine 25 mg Capsule 50 MG PO ×2 (09:46→18:31)
--- NOTE | 2023-01-06 10:08 | W.PM.NPUPNS ---
Subjective NPU Subjective: Patient presented today reporting that he is doing okay. He had the second loading dose of Invega Sustenna this morning to the deltoid and is denying any side effects or any problems from the shot. He continues to report that he is feeling better on medication and is focused on hoping to discharge sooner rather than later. He was seeming more prosocial and out on the unit and interacting with other patients. He reports he is eating and sleeping better and denied any intrusive thoughts or thoughts about people doing things to his property. Mental Status Exam MSE Comments: This is an overweight versus obese, white male, in hospital scrubs, with fair grooming and good eye contact. He was calm and pleasant on the milieu. There was no evidence of any abnormal involuntary motor movements tics or tremors. There was mild psychomotor retardation appreciated. He was pleasant and cooperative with exam in no acute distress. Speech was normal in rate and volume. Mood described as good. His affect was brighter today. His thought process was organized and linear. Thought content: patient denied any suicidal or homicidal ideation. He had continued to endorse paranoia with less overt delusions noted. Patient denied any auditory or visual hallucinations. Attention, concentration, and memory appeared intact, but none were formally tested. Alert and oriented times three. Insight was improving. His judgment is poor. Impulse control is poor. Vitals/I&O/Wt Last Vital Signs Temp 98.4 F 01/05/23 19:33 Pulse 62 01/05/23 19:33 Resp 16 01/06/23 06:00 BP 118/82 01/05/23 19:33 Pulse Ox 97 01/05/23 19:33 O2 Del Method Room Air 01/05/23 19:33 Data NPU 12/19/22 14:30 12/19/22 14:30 A&P Assessment and plan (1) Schizophrenia: (2) Cannabis use disorder, severe, dependence: (3) Alcohol use disorder, severe, dependence: (4) Psychosis: Plan This is a 47-year-old, white male, with a history of mental health issues, who presents on a 96-hour hold, with concerns of paranoia and paranoid behavior police reports of persecutory beliefs, reports and delusions. 1. Invega 234mg IM given today (01/01/23) while continuing invega oral 6mg at this time. Second loading dose of Invega Sustenna 156mg IM to the deltoid given today, 01/06/23. 2.? Encourage individual, group, and milieu therapy. 3.? Continue q-15-minute checks for safety. 4.? Recommend sober living treatment at the highest level of care to which the patient is willing to commit. Involuntary Hold Information 96 Hour Hold: 96 Hour Involuntary Admission: Yes 96 Hour Hold Ending Date: 12/25/22 96 Hour Hold Ending Time: 14:20 Attestations NPU Medical Necessity Statement*: Inpatient hospitalization is medically necessary and the clinically appropriate intervention, at this time. The patient's likely length of stay is 4-6 days as he is now been placed on a 21-day hold with likely forced medications. Coding Level of Care Code Acute Code for [facility] Fwd Diagnoses Schizophrenia F20.9 Cannabis use disorder, severe, dependence F12.20 Alcohol use disorder, severe, dependence F10.20 Psychosis F29
[2023-01-06 13:33] VITALS: BP 108/68; PULSE 86; RESP 16; TEMP 36.6; O2SAT 95
[2023-01-06 19:44] VITALS: BP 127/78; PULSE 95; RESP 18; O2SAT 96
[2023-01-06] MEDS: trazodone 50 mg Tablet PO ×2 (20:18→21:14)
[2023-01-07 06:00] VITALS: BP 161/92; PULSE 89; RESP 18; O2SAT 98
[2023-01-07] MEDS: paliperidone ER 6 mg Tablet PO (08:28)
[2023-01-07] MEDS: hyDROXYzine 25 mg Capsule 50 MG PO ×2 (11:00→17:01)
--- NOTE | 2023-01-07 11:01 | PC.NURSE ---
Patient reports anxiety 11/06. Patient reports anxiety related to watching documentary about [place] having land stolen from by Europeans.
--- NOTE | 2023-01-07 13:55 | W.PM.NPUPNS ---
Subjective NPU Subjective: Patient presented today reporting that he is doing fine and denying any issues. He reportedly has some grandchildren that he has not met before and that he wants to connect with him now that he is feeling better. He continues to deny any thinking related to the people he reports were coming to his house. He denies any side effects of the medications or even problems with the injection that he received yesterday. We discussed working with the treatment team to get appropriate resources for outpatient success. Mental Status Exam MSE Comments: This is an overweight versus obese, white male, in hospital scrubs, with fair grooming and good eye contact. He was calm and pleasant on the milieu. There was no evidence of any abnormal involuntary motor movements tics or tremors. There was mild psychomotor retardation appreciated. He was pleasant and cooperative with exam in no acute distress. Speech was normal in rate and volume. Mood described as good. His affect was euthymic. His thought process was organized and linear. Thought content: patient denied any suicidal or homicidal ideation. He had continued to endorse paranoia with less overt delusions noted. Patient denied any auditory or visual hallucinations. Attention, concentration, and memory appeared intact, but none were formally tested. Alert and oriented times three. Insight was improving. His judgment is poor. Impulse control is poor. Vitals/I&O/Wt Last Vital Signs Temp 97.8 F 01/06/23 13:33 Pulse 89 01/07/23 06:00 Resp 18 01/07/23 06:00 BP 161/92 01/07/23 06:00 Pulse Ox 98 01/07/23 06:00 O2 Del Method Room Air 01/07/23 06:00 01/06/23 01/07/23 01/07/23 22:59 06:59 14:59 Intake Total 0 / 0 Balance 0 / 0 Weight last 48 hrs Weight 100.414 kg Data NPU 12/19/22 14:30 12/19/22 14:30 A&P Assessment and plan (1) Schizophrenia: (2) Cannabis use disorder, severe, dependence: (3) Alcohol use disorder, severe, dependence: (4) Psychosis: Plan This is a 47-year-old, white male, with a history of mental health issues, who presents on a 96-hour hold, with concerns of paranoia and paranoid behavior police reports of persecutory beliefs, reports and delusions. 1. Invega 234mg IM given (01/01/23) while continuing invega oral 6mg at this time. Second loading dose of Invega Sustenna 156mg IM to the deltoid given, 01/06/23. 2.? Encourage individual, group, and milieu therapy. 3.? Continue q-15-minute checks for safety. 4.? Recommend sober living treatment at the highest level of care to which the patient is willing to commit. 5. Work with treatment team on outpatient services that will create a safety net for his limited functioning. Involuntary Hold Information 96 Hour Hold: 96 Hour Involuntary Admission: Yes 96 Hour Hold Ending Date: 12/25/22 96 Hour Hold Ending Time: 14:20 Attestations NPU Medical Necessity Statement*: Inpatient hospitalization is medically necessary and the clinically appropriate intervention, at this time. We will monitor medications and make changes as indicated. The patient's likely length of stay is 3-5 days. Coding Level of Care Code Acute Code for [facility] Fwd Diagnoses Schizophrenia F20.9 Cannabis use disorder, severe, dependence F12.20 Alcohol use disorder, severe, dependence F10.20 Psychosis F29
[2023-01-07 14:00] VITALS: BP 130/85; PULSE 102; RESP 16; TEMP 37.1; O2SAT 98
[2023-01-07] MEDS: OLANZapine 5 mg ODT PO ×2 (15:16→19:15)
--- NOTE | 2023-01-07 19:35 | PC.NURSE ---
FIRST THING AFTER THIS NURSE LOGGED ONTO THE COMPUTER, THIS PT CAME TO THE DESK ASKING FOR ZYPREXA BY NAME. STATED HIS ANXIETY WAS CLIMBING, WHILE GLANCING AT OTHER PTS. ZYPREXA ZYDIS 5MG SL GIVEN.
[2023-01-07] MEDS: trazodone 50 mg Tablet PO ×2 (20:02→21:43)
[2023-01-07 20:07] VITALS: BP 121/86; PULSE 93; RESP 18; TEMP 36.7; O2SAT 97
[2023-01-08 06:00] VITALS: RESP 16
[2023-01-08] MEDS: hyDROXYzine 25 mg Capsule 50 MG PO ×3 (08:18→22:32)
[2023-01-08] MEDS: paliperidone ER 6 mg Tablet PO (08:18)
--- NOTE | 2023-01-08 11:45 | P.NPUPN_ITS ---
Subjective NPU Subjective: Patient presented today reporting that he is doing well. His daughter and grandchildren are reportedly back in town and might be a source of support for him. He continues to deny any thinking related to the people he reports were coming to his house. He denies any side effects of the medications. We discussed working with the treatment team to get appropriate resources for outpatient success and discussing his functioning versus baseline with his family. Mental Status Exam MSE Comments: This is an overweight versus obese, white male, in hospital scrubs, with fair grooming and good eye contact. He was calm and pleasant on the milieu. There was no evidence of any abnormal involuntary motor movements tics or tremors. There was mild psychomotor retardation appreciated. He was pleasant and cooperative with exam in no acute distress. Speech was normal in rate and volume. Mood described as good. His affect was euthymic. His thought process was organized and linear. Thought content: patient denied any suicidal or homicidal ideation. He had continued to endorse paranoia with less overt delusions noted. Patient denied any auditory or visual hallucinations. Attention, concentration, and memory appeared intact, but none were formally tested. Alert and oriented times three. Insight was improving. His judgment is poor. Impulse control is poor. Vitals/I&O/Wt Last Vital Signs Temp 98.0 F 01/07/23 20:07 Pulse 93 01/07/23 20:07 Resp 16 01/08/23 06:00 BP 121/86 01/07/23 20:07 Pulse Ox 97 01/07/23 20:07 O2 Del Method Room Air 01/07/23 20:07 Weight last 48 hrs Weight 100.414 kg Data NPU 12/19/22 14:30 12/19/22 14:30 A&P Assessment and plan (1) Schizophrenia: (2) Cannabis use disorder, severe, dependence: (3) Alcohol use disorder, severe, dependence: (4) Psychosis: Plan This is a 47-year-old, white male, with a history of mental health issues, who presents on a 96-hour hold, with concerns of paranoia and paranoid behavior police reports of persecutory beliefs, reports and delusions. 1. Invega 234mg IM given (01/01/23) while continuing invega oral 6mg at this time. Second loading dose of Invega Sustenna 156mg IM to the deltoid given, 01/06/23. 2.? Encourage individual, group, and milieu therapy. 3.? Continue q-15-minute checks for safety. 4.? Recommend sober living treatment at the highest level of care to which the patient is willing to commit. 5. Work with treatment team on outpatient services that will create a safety net for his limited functioning. Involuntary Hold Information 96 Hour Hold: 96 Hour Involuntary Admission: Yes 96 Hour Hold Ending Date: 12/25/22 96 Hour Hold Ending Time: 14:20 Attestations NPU Medical Necessity Statement*: Inpatient hospitalization is medically necessary and the clinically appropriate intervention, at this time. We will monitor medications and make changes as indicated. The patient's likely length of stay is 2-4 days. Coding Level of Care Code Acute Code for [facility] Fwd Diagnoses Schizophrenia F20.9 Cannabis use disorder, severe, dependence F12.20 Alcohol use disorder, severe, dependence F10.20 Psychosis F29
[2023-01-08 13:11] VITALS: BP 114/69; PULSE 87; RESP 16; TEMP 36.8; O2SAT 99
[2023-01-08] MEDS: OLANZapine 5 mg ODT PO ×2 (13:48→19:18)
--- NOTE | 2023-01-08 13:49 | PC.NURSE ---
Patient rating anxiety 5/10. Patient states that he is feeling anxious and nervous about being discharged. Patient given 5mg Zyprexa ODT.
[2023-01-08] MEDS: magnesium hydroxide 30 mL UDC PO (19:18)
[2023-01-08] MEDS: trazodone 50 mg Tablet PO ×2 (19:18→22:32)
[2023-01-08 20:26] VITALS: BP 120/82; PULSE 102; RESP 18; O2SAT 97
[2023-01-09 06:00] VITALS: BP 106/72; PULSE 88; RESP 18; TEMP 36.8; O2SAT 95
[2023-01-09] MEDS: paliperidone ER 6 mg Tablet PO (08:34)
[2023-01-09] MEDS: hyDROXYzine 25 mg Capsule 50 MG PO ×2 (10:08→20:09)
[2023-01-09 13:24] VITALS: BP 147/87; PULSE 107; RESP 18; TEMP 36.5; O2SAT 98
--- NOTE | 2023-01-09 16:15 | W.PM.NPUPNS ---
Subjective NPU Subjective: Patient presents today reporting that he is feeling better and quite optimistic about returning home. It appears his daughter is moving back permanently as he reports she returned to her job at one of the [employer] in [place]. He reports she worked there before she left. He reports the plan is for her to stay with him and be of assistance which excites him from the standpoint of having daily connection with his family as she has been gone for a little while. We discussed the likelihood of discharge in the next 48 hours and his brother or daughter would like to come up to visit him to get a sense of where he was functioning near baseline. Mental Status Exam MSE Comments: This is an overweight versus obese, white male, in hospital scrubs, with fair grooming and good eye contact. He was calm and pleasant on the milieu. There was no evidence of any abnormal involuntary motor movements tics or tremors. There was mild psychomotor retardation appreciated. He was pleasant and cooperative with exam in no acute distress. Speech was normal in rate and volume. Mood described as good. His affect was euthymic. His thought process was organized and linear. Thought content: patient denied any suicidal or homicidal ideation. He had continued to endorse paranoia with less overt delusions noted. Patient denied any auditory or visual hallucinations. Attention, concentration, and memory appeared intact, but none were formally tested. Alert and oriented times three. Insight was improving. His judgment is poor. Impulse control is poor. Vitals/I&O/Wt Last Vital Signs Temp 97.7 F 01/09/23 22:00 Pulse 91 01/09/23 22:00 Resp 16 01/09/23 22:00 BP 120/68 01/09/23 22:00 Pulse Ox 98 01/09/23 22:00 O2 Del Method Room Air 01/09/23 22:00 Data NPU 12/19/22 14:30 12/19/22 14:30 A&P Assessment and plan (1) Schizophrenia: (2) Cannabis use disorder, severe, dependence: (3) Alcohol use disorder, severe, dependence: (4) Psychosis: Plan This is a 47-year-old, white male, with a history of mental health issues, who presents on a 96-hour hold, with concerns of paranoia and paranoid behavior police reports of persecutory beliefs, reports and delusions. 1. Invega 234mg IM given (01/01/23) while continuing invega oral 6mg at this time. Second loading dose of Invega Sustenna 156mg IM to the deltoid given, 01/06/23. Plan on discontinuing oral Invega at discharge. 2.? Encourage individual, group, and milieu therapy. 3.? Continue q-15-minute checks for safety. 4.? Recommend sober living treatment at the highest level of care to which the patient is willing to commit. 5. Work with treatment team on outpatient services that will create a safety net for his limited functioning. Anticipate discharge in the next 48 hours. Involuntary Hold Information 96 Hour Hold: 96 Hour Involuntary Admission: Yes 96 Hour Hold Ending Date: 12/25/22 96 Hour Hold Ending Time: 14:20 Attestations NPU Medical Necessity Statement*: Inpatient hospitalization is medically necessary and the clinically appropriate intervention, at this time. We will monitor medications and make changes as indicated. The patient's likely length of stay is 1-3 days. Coding Level of Care Code Acute Code for [facility] Fwd Diagnoses Schizophrenia F20.9 Cannabis use disorder, severe, dependence F12.20 Alcohol use disorder, severe, dependence F10.20 Psychosis F29
[2023-01-09] MEDS: trazodone 50 mg Tablet PO (20:08)
[2023-01-09 22:00] VITALS: BP 120/68; PULSE 91; RESP 16; TEMP 36.5; O2SAT 98
[2023-01-10 06:00] VITALS: BP 107/66; PULSE 104; RESP 20; TEMP 36.4; O2SAT 95
[2023-01-10] MEDS: paliperidone ER 6 mg Tablet PO (07:45)
[2023-01-10 13:57] VITALS: BP 107/66; PULSE 104; RESP 20; TEMP 36.4; O2SAT 95
--- NOTE | 2023-01-10 15:05 | W.PM.NPUDCS ---
Diagnoses at Discharge Discharge Diagnosis (1) Schizophrenia: Status: Acute (2) Cannabis use disorder, severe, dependence: Status: Acute (3) Alcohol use disorder, severe, dependence: Status: Acute (4) Psychosis: Status: Acute Reason for Visit Reason for Visit: 96 hour hold Brief History: Jose Hernandez is a 47 year old male who presented to the emergency department with the following report: Chief Complaint: Psychiatric Symptoms Stated Complaint: 96 hour hold Time Seen by Provider: 12/19/22 14:10 Source: patient Mode of arrival: other ([facility] department) Limitations: no limitations History of Present Illness: Patient transported to the emergency department by [facility] with a court ordered 96-hour hold. She has deputies report that the patient's been cooperative and interactive during their transportation. Patient is unaware of why he is here. He states he lives alone and has not had any negative interactions with anyone. He denies any thoughts of harming himself or others. He denies auditory or visual his hallucinations. He states he occasionally smokes marijuana but does not drink alcohol use other street drugs. He has not had any recent hospitalizations for mental health and has not had a mental health related hospitalization for over 10 years. He states he used to be prescribed medication for depression by his family doctor but has not taken those for 4 months since his family doctor moved to a different location. Synopsis of the affidavit provided from Jasvir Webster who is a [place] [employer] sergeant and apparently also the patient's nephew read of the [place] [employer] states that there they are concerned because he is been exhibiting psychosis and displays paranoia with him apparently experiencing auditory hallucinations much of his behaviors resulted in numerous calls to his residence because of his behavior and they are concerned that he is a threat to himself. Associated symptoms: Reports depression; Deny auditory hallucinations, visual hallucinations, homicidal ideation or suicidal ideation The patient was admitted to the neuropsychiatric unit for definitive treatment of those issues. The patient presents today reporting that he was prescribed escitalopram and Xanax, by Dr. Estevez, at [facility] but he has moved. Xanax ? gram, 1 to 3 a day. He not taken anything for several months. The patient reports that he has no idea why he is here, a deputy showed up at his house and brought him here. We discussed that it is odd that he has not tried to gain an understanding of why he was brought here, and why they thought he needed to put on a hold. The patient reports that he had a previous psychiatric hospitalization, he was here ten years ago. He reports that he has no idea why he was hospitalized, although he did not articulate for what other than to get on medication and get disability. Then he said it was for anxiety and depression, which we discussed had to be at a certain level to require hospitalization. He reports that he has been trying to get a job and has not been able to find one and is not doing well financially. He reports that he fought for disability a couple of years ago, reporting that behavioral health said he was disabled, but he did not get disability. He reports that he has been to [facility]. He reports that he has been on Wall[place], Effexor, Wellbutrin, Abilify, Klonopin and Ativan, which he reports did not seem to help his anxiety level. He denies Depakote. The patient reports that he smokes about a half pack of cigarettes a day. He reports occasional alcohol use, once a week to once every two weeks. He denies regular marijuana use. He denies any other illicit drug use. He denies current cocaine, methamphetamine, opiate use. He reports that he has been to drug rehabilitation a couple times and had three DWI?s, the last time about seven years ago. He denies any other drug related charges. He reports that anxiety and depression started when he was younger and when he was about 20 to 22 years old, he went to the doctor for that. He endorses depressive feelings related to his weight, he endorses difficulty sleeping at times, at times lack of enjoyment. He denies passive wish or suicidal thoughts. He denies self-injurious behavior. He denies nightmares of flashbacks. He reports that his anxiety manifests as feeling scared, heart races, sweaty palms. He reports that he worries a lot, especially related to finances. He denies auditory or visual hallucinations, saying ?not as far as I know.? He again stated that he has no idea why he was brought to the hospital. We discussed that the report states concerns related to no taking medication, using alcohol as a replacement, and thoughts of people living in and under his residence. He reports that he has thought he heard things, and he has a large crawl space that they could be in. When asked about statements he made about these people plotting to steal his property or harm him, he stated that they hadn?t hurt him as far as he knows, he had not woken up with any scratches or anything. When asked about statements he made about these people talking in a foreign language he said he did not say that, but he used to have a roommate that spoke in a foreign language in her sleep. There are reports that police have come to his house multiple times recently leading to his arrest. He reports that he would call because there were people outside bothering him. And once the professor in family studies got there, they would be gone, stating the people probably heard him call the professor in family studies and would leave then. There are concerns about paranoia and paranoid behaviors. PSYCHIATRIC HISTORY: As above. SUBSTANCE ABUSE HISTORY: As above. FAMILY HISTORY: The patient denies mental health issues on either side of the family. And he denies any addiction issues in his family, stating there were all Voodoo. He denies any suicide attempts or completions. DEVELOPMENTAL HISTORY: The patient denies any issues with his mother?s or delivery of him. The patient reports learning to walk and talk and meeting developmental milestones on time. The patient denies speech therapy, learning support, emotional support, or special education classes. He reports he had some issues with reading in fourth grade, but it was then attributed to poor vision. PSYCHOSOCIAL HISTORY: The patient reports that his mother and father were together at his , and remained together. He reports that he has two older brothers, one of which when the patient was 18 years old. He denies his mother or father having any other children. He describes his childhood as pretty good, grew up in a Voodoo household, parents were dependable. He denies neglect or emotional, physical, or sexual abuse. He denies CPS involvement. He reports that he graduated from high school. He denies additional training. He endorses being heterosexual, with the longest relationship being a year and a half. He has been once and once. He has a 25-year-old daughter, who he talks with periodically. He denies service. He reports identifying as Voodoo. He reports that his longest job was two years at [employer]. He is currently unemployed. He reports that he currently lives in a house alone. LEGAL HISTORY: The patient reports that he [facility] for [facility]. He [facility] time, for five days, twenty years ago. MEDICAL HISTORY: The patient endorses possible allergy to amoxicillin. No major medical issues reported. Hospital Course Hospital Course He slowly acclimated to the individual, group and milieu therapies provided.? He presented with significant psychosis and paranoia believing people were in his house or under his house. He had no insight into the possibility that this represented false beliefs or psychosis. He was placed on a 21-day hold and we started Invega it was changed to the Invega Sustenna and he was given both loading doses prior to discharge. We worked with his family to assist in him having support after discharge. His daughter moved home from out of state with his grandkids and moved in. He worked with the social work team to get appropriate aftercare appointments. With his medications started and he did have significant improvement.? He was able to contract for safety outside of the hospital prior to discharge.? During the hospitalization, patient had routine laboratory studies which were within normal limits except for few outliers.? Additionally there was a general medical evaluation which was also within normal limits and revealed no new acute processes. Discharge Summary: At the time of discharge, lethality was denied and psychosis was resolving.? Mood and anxiety were well managed.? Patient endorsed a plan to avoid all drugs of abuse and follow-up with the aftercare recommendations of the treatment team.? Patient was evaluated and deemed to be absent credible lethality, and was voluntary and denied wanting any continued inpatient hospitalization, so he was discharged. Involuntary Hold Information 96 Hour Hold: 96 Hour Involuntary Admission: Yes 96 Hour Hold Ending Date: 12/25/22 96 Hour Hold Ending Time: 14:20 Mental Status Exam MSE Comments: This is an overweight versus obese, white male, in hospital scrubs, with fair grooming and good eye contact. He was calm and pleasant on the milieu. There was no evidence of any abnormal involuntary motor movements tics or tremors. There was mild psychomotor retardation appreciated. He was pleasant and cooperative with exam in no acute distress. Speech was normal in rate and volume. Mood described as good. His affect was euthymic. His thought process was organized and linear. Thought content: patient denied any suicidal or homicidal ideation. He had continued to endorse paranoia with less overt delusions noted. Patient denied any auditory or visual hallucinations. Attention, concentration, and memory appeared intact, but none were formally tested. Alert and oriented times three. Insight and judgment is improving. Impulse control is improving. Discharge Data Studies Completed and Pending: Laboratory Results WBC 6.14 10^3/uL (3.2 9-11.43) 12/19/22 14:30 RBC 4.83 10^6/uL (3.8 5-5.65) 12/19/22 14:30 Hgb 15.70 g/dL (11.27 -16.99) 12/19/22 14:30 Hct 45.8 % (37-53) 12/19/22 14:30 MCV 94.8 fl (82-101) 12/19/22 14:30 MCH 32.5 pg (27-33) 12/19/22 14:30 MCHC 34.3 g/dL (30-55) 12/19/22 14:30 RDW 13.4 % (12.1-15.1 ) 12/19/22 14:30 Plt Count 211 10^3/cmm (157 -399) 12/19/22 14:30 MPV 10.4 fL (7.4-10.4 ) 12/19/22 14:30 Neut % (Auto) 39.8 % 12/19/22 14:30 Lymph % (Auto) 44.6 % 12/19/22 14:30 Keith % (Auto) 11.2 % 12/19/22 14:30 Eos % (Auto) 2.8 % 12/19/22 14:30 Baso % (Auto) 1.1 % 12/19/22 14:30 Neut # (Auto) 2.44 10^3/uL (1.8 -7.7) 12/19/22 14:30 Lymph # (Auto) 2.7 10^3/uL (0.8- 4.8) 12/19/22 14:30 Keith # (Auto) 0.7 10^3/uL (0.2- 0.9) 12/19/22 14:30 Eos # (Auto) 0.2 10^3/uL (0.0- 0.8) 12/19/22 14:30 Baso # (Auto) 0.1 10^3/uL (0.0- 0.1) 12/19/22 14:30 Nucleated RBC % (a uto) 0 % 12/19/22 14:30 Nucleated RBCs # 0.0 /100WBC 12/19/22 14:30 Sodium 142 mmol/L (136-1 45) 12/19/22 14:30 Potassium 4.1 mmol/L (3.5-5 .1) 12/19/22 14:30 Chloride 109 mmol/L (98-10 7) H 12/19/22 14:30 Carbon Dioxide 23 mmol/L (22-29) 12/19/22 14:30 Anion Gap 14.1 (5-19) 12/19/22 14:30 BUN 13 mg/dL (6-20) 12/19/22 14:30 Creatinine 0.9 mg/dL (0.7-1. 2) 12/19/22 14:30 GFR Calculation 91.3 mL/min (90-1 30) 12/19/22 14:30 Glucose 88 mg/dL (65-115) 12/19/22 14:30 Calculated Osmolal ity 294 mOsm/kg (285- 295) 12/19/22 14:30 Calcium 8.9 mg/dL (8.5-10 .5) 12/19/22 14:30 Total Bilirubin 0.2 mg/dL (0.15-1 .2) 12/19/22 14:30 AST 28 U/L (0-40) 12/19/22 14:30 ALT 39 U/L (0-41) 12/19/22 14:30 Alkaline Phosphata se 75 U/L (40-130) 12/19/22 14:30 Total Protein 6.7 g/dL (6.6-8.7 ) 12/19/22 14:30 Albumin 4.3 g/dL (3.5-5.2 ) 12/19/22 14:30 Globulin 2.4 g/dL (1.3-4.6 ) 12/19/22 14:30 Salicylates < 0.3 mg/dL (3-10 ) L 12/19/22 14:30 Urine Opiates Scre en Negative ng/mL (N egative) 12/20/22 12:00 Acetaminophen < 5.0 ug/mL (10-3 0) L 12/19/22 14:30 Ur Barbiturates Sc reen Negative ng/mL (N egative) 12/20/22 12:00 Ur Phencyclidine S crn Negative ng/mL (N egative) 12/20/22 12:00 Ur Amphetamines Sc reen Negative ng/mL (N egative) 12/20/22 12:00 U Benzodiazepines Scrn Negative ng/mL (N egative) 12/20/22 12:00 Urine Cocaine Scre en Negative ng/mL (N egative) 12/20/22 12:00 U Marijuana (THC) Screen Negative ng/mL (N egative) 12/20/22 12:00 Ethyl Alcohol < 10 mg/dL (0-10) 12/19/22 14:30 SARS-CoV-2 Ag (Rap id) Negative (Negati ve) 12/19/22 14:51 Vitals: Last Vital Signs Temp 97.6 F 01/10/23 13:57 Pulse 104 H 01/10/23 13:57 Resp 20 H 01/10/23 13:57 BP 107/66 01/10/23 13:57 Pulse Ox 95 01/10/23 13:57 O2 Del Method Room Air 01/10/23 06:00 Discharge Plan Discharge Patient Disposition: Home Condition: Stable Prescriptions: New hydroxyzine pamoate 25 mg Capsule 50 mg PO Q6H PRN (Reason: Anxiety) 30 Days Qty: 120 1RF Invega Sustenna 156 mg/mL syringe 156 mg IM Q30D Qty: 1 1RF Rx Instructions: next injection 02/05/23 then as directed thereafter trazodone 50 mg Tablet 50 mg PO BEDTIME PRN (Reason: Sleep) 30 Days Qty: 30 1RF No Action lindane 1 % shampoo 1 applic topical DAILY Qty: 60 3RF clotrimazole 1 % cream 1 applic topical BID 28 Days Qty: 30 1RF Discharge Orders: Discharge Order (Routine); Ordered 01/10/23 Ordered By: Maycol Yin Referrals: Emile Estevez DO [Primary Care Provider] - 01/18/23 2:20 pm Discharge Diet: Regular Discharge Activity: Resume usual activity Patient Instructions: Trazodone (By mouth), Hydroxyzine (By mouth), Paliperidone (By injection) (Invega Sustenna, Invega Trinza, Invega..., Schizophrenia (GEN), Opioid Safety Discharge Attestations NPU Time Spent in Discharge Care*: less than 30 min Specific Discharge Activities: Specific discharge activities: educating patient, discussing with machine adjuster leader case trim/social workers/dc planners, documenting/other paperwork and evaluating patient/reviewing data Coding Level of Care Code Acute Chg FW DC note Diagnoses Schizophrenia F20.9 Cannabis use disorder, severe, dependence F12.20 Alcohol use disorder, severe, dependence F10.20 Psychosis F29
== END 2023-01-10 15:51 | disposition home or self-care (01) | DRG 885 ==
LOC: ER 14:22 → NP 15:11
PROVIDERS: Admitting Provider Psychiatry & Neurology Psychiatry; Emergency Provider Emergency Medicine; PCP Family Medicine; Visit Provider Psychiatry & Neurology Psychiatry
DX: F20.9 Schizophrenia, unspecified (principal); Z91.148 Patient's other noncompliance with medication regimen for other reason; F17.210 Nicotine dependence, cigarettes, uncomplicated
CPT/HCPCS: 36415; 80053; 80306; 80307; 85025; 87426; 96372; 97150; 97165; 99285

== ENCOUNTER → 2024-01-03 11:41 | Outpatient (BNVA) | payer MEDICAID, SELFPAY | PROVIDERS: PCP Family Medicine; Visit Provider Family Medicine | DX: E66.9 Obesity, unspecified (principal) | CPT/HCPCS: 80053; 80061; 83036; 84439; 84443; 85025 ==

== ENCOUNTER → 2024-12-19 14:28 | Outpatient (BNVA) | payer MEDICAID, SELFPAY | PROVIDERS: Family Provider Family Medicine; PCP Family Medicine; Visit Provider Family Medicine | DX: Z13.6 Encounter for screening for cardiovascular disorders (principal) | CPT/HCPCS: 80053; 80061; 83036; 84439; 84443; 85025 ==